=== PATIENT | male | born 1940 | race Caucasian/White ===

== ENCOUNTER 2017-08-14 23:40 | Emergency (ER) | payer MEDICARE, BC ==
[2017-08-14] MEDS ORDERED: IPRATROPIUM/ALBUTEROL (0.5MG/3MG) NEB INH ONE (23:58)
--- NOTE | 2017-08-15 00:04 | Emergency Department Record ---
History of Present Illness - General Chief Complaint: Shortness of breath Stated Complaint: CONGESTION,ALONSO,FEVER Source: Patient Mode of Arrival: Ambulatory Limitations: No limitations - History of Present Illness Initial Comments: 76 yo male presents to ED for evaluation of difficulty in breathing, feeling flushed, and congested for the past several hours. Patient denies fevers, chills, or recent illness. Patient does report that he uses CPAP at night, but does not wear oxygen at home. Patient denies a history of COPD/Asthma previously, and denies chest pain. MD Complaint: Shortness of breath Onset/Timin -: Days(s) Severity: Moderate Consistency: Constant Improves With: Nothing Worsens With: Nothing Associated Symptoms: Denies other symptoms - Related Data Home Oxygen Therapy: No Home Medications Medication Instructions Recorded Confirmed Last Taken Amiodarone HCl [Pacerone] 200 mg PO DAILY 08/14/17 08/15/17 Unknown Aspirin 81 mg PO DAILY 08/14/17 08/15/17 Unknown Clonidine HCl [Clonidine HCl] 0.2 mg PO BID 08/14/17 08/14/17 Unknown Furosemide [Furosemide] 40 mg PO DAILY 08/14/17 08/15/17 Unknown Glyburide [Glyburide] 1.25 mg PO DAILY 08/14/17 08/15/17 Unknown Metformin HCl [Metformin HCl] 1,000 mg PO BID 08/14/17 08/14/17 Unknown Metoprolol Succinate [Toprol Xl] 50 mg PO QPM 08/14/17 08/15/17 Unknown Metoprolol Succinate [Toprol Xl] 100 mg PO QAM 08/14/17 08/15/17 Unknown Potassium Chloride 10 meq PO DAILY 08/14/17 08/15/17 Unknown Rivaroxaban [Xarelto] 20 mg PO DAILY 08/14/17 08/15/17 Unknown Sacubitril/Valsartan [Entresto 97 1 tab PO BID 08/14/17 08/15/17 Unknown mg-103 mg Tablet] Sulindac [Sulindac] 200 mg PO BID 08/14/17 08/15/17 Unknown Previous Rx's Medication Instructions Recorded Prednisone [Prednisone 20Mg] 20 mg PO TID #12 tab 08/15/17 Allergies Allergy/AdvReac Type Severity Reaction Status Date / Time No Known Drug Allergies Allergy Verified 08/14/17 23:57 Review of Systems Constitutional: Denies: Chills, Fever, Malaise, Night sweats Eyes: Denies: Eye discharge, Eye pain ENT: Reports: Congestion. Denies: Ear pain Respiratory: Reports: Dyspnea. Denies: Cough Cardiovascular: Denies: Chest pain, Dyspnea on exertion Endocrine: Denies: Fatigue, Heat or cold intolerance Gastrointestinal: Denies: Abdominal pain, Nausea, Vomiting Genitourinary: Denies: Incontinence, Retention Musculoskeletal: Denies: Arthralgia, Back pain, Gout, Joint swelling Skin: Denies: Bruising, Change in color Neurological: Denies: Abnormal gait, Confusion, Headache, Seizure Psychiatric: Denies: Anxiety Hematological/Lymphatic: Denies: Anemia, Blood Clots Physical Exam - General General Appearance: Alert, Oriented x3, Cooperative, Moderate distress Limitations: No limitations - Head Head exam: Atraumatic, Normocephalic, Normal inspection Head exam detail: negative: Abrasion, Contusion, Stauffer's sign, General tenderness, Hematoma, Laceration - Eye Eye exam: Normal appearance. negative: Conjunctival injection, Periorbital swelling, Periorbital tenderness, Scleral icterus - ENT Ear exam: negative: Auricular hematoma, Auricular trauma Nasal Exam: negative: Active bleeding, Discharge, Dried blood, Foreign body Mouth exam: negative: Drooling, Laceration, Muffled voice, Tongue elevation - Neck Neck exam: Normal inspection. negative: Meningismus, Tenderness - Respiratory Respiratory exam: Decreased breath sounds. negative: Rales, Respiratory distress, Rhonchi, Stridor - Cardiovascular Cardiovascular Exam: Regular rate, Normal rhythm, Normal heart sounds - GI/Abdominal GI/Abdominal exam: Soft. negative: Rebound, Rigid, Tenderness - Rectal Rectal exam: Deferred - exam: Deferred - Extremities Extremities exam: Normal inspection. negative: Pedal edema (1+edema bilaterally ), Tenderness - Back Back exam: Denies: CVA tenderness (R), CVA tenderness (L) - Neurological Neurological exam: Alert, Normal gait, Oriented X3 - Psychiatric Psychiatric exam: Normal affect, Normal mood - Skin Skin exam: Normal color. negative: Abrasion Type of lesion: negative: abrasion Course Vital Signs 08/14/17 23:56 Temperature 98.9 F Pulse Rate [ 86 Pulse Ox Probe] Respiratory 22 Rate Blood Pressure 137/86 [Left Arm] Pulse Ox 91 L - Reevaluation(s) Reevaluation #1: 08/15/17 00:17 EKG: paced rhythm 85 LBBB, no further interpretation due to paved rhythm. Reevaluation #2: 08/15/17 00:59 CXR: Chronic changes, cardiomegaly, post-operative changes. Labs reviewed, Hgb 13.8, BNP 4262. Labs are otherwise grossly unremarkable for an acute process. Patient reports significant improvement following duoneb. Reevaluation #3: 08/15/17 01:21 Ambulation trial performed with RA biox between 90-94%, patient reports that he was not SOB upon completion, and reports that he would like to go home a this time. Will discharge home on Albuterol and Prednisone as directed. Medical Decision Making - Lab Data Result diagrams: 08/14/17 00:25 02 00:25 Disposition Disposition: Discharge Clinical Impression: Bronchospasm Disposition: Home, Self-Care Condition: (2) Stable Instructions: Bronchospasm (ED) Additional Instructions: Return to ED if your symptoms worsen or if you have any concerns. Albuterol and prednisone as directed. Follow-up with your family doctor in 3-5 days as directed. Prescriptions: Prednisone [Prednisone 20Mg] 20 mg PO TID #12 tab Forms: Patient Portal Access Time of Disposition: 01:23 Quality - Quality Measures Quality Measures: N/A - Blood Pressure Screening Does Patient Have Any of the Following: No Blood Pressure Classification: Pre-Hypertensive BP Reading Systolic Measurement: 137 Diastolic Measurement: 86 Screening for High Blood Pressure: < Pre-Hypertensive BP, F/U Documented > [ G8950] Pre-Hypertensive Follow-up Interventions: Referral to alternative/primary care provider.
[2017-08-15 00:33] LABS: BASO % 0.3 % (0-6); EOS % 0.7 % (0-6); GRAN % 75.4 % (47-80); HEMATOCRIT 40.5 % (42.0-52.0); HEMOGLOBIN 13.8 gm/dl (14.0-18.0); LYMPH % 9.4 % (16-45); MEAN CORPUSCULAR HEMOGLOBIN 32.7 pg (27-33); MEAN CORPUSCULAR HGB CONC 34.1 g/dl (32-36); MEAN PLATELET VOLUME 9.9 fl (7.4-10.4); MONO % 14.2 % (0-9); PLATELET COUNT 201 K/uL (130-400); RED BLOOD COUNT 4.22 M/uL (4.40-5.70); RED CELL DISTRIBUTION WIDTH 14.8 % (11.5-14.5)
[2017-08-15 00:46] LABS: BLOOD UREA NITROGEN 26 mg/dL (8-23); CREATININE 1.1 mg/dL (0.7-1.2); EST GLOMERULAR FILTRATION RATE > 60 mL/min
[2017-08-15 00:47] LABS: TOTAL PROTEIN 7.2 g/dL (6.6-8.7)
[2017-08-15 00:49] LABS: GLUCOSE,RANDOM 149 mg/dL (74-109)
[2017-08-15 00:52] LABS: ALB/GLOB RATIO 1.3 (1.1-1.8); ALKALINE PHOSPHATASE 84 U/L (40-129); ALT/SGPT 13 U/L (<41); AST/SGOT 14 U/L (10.0-50.0)
[2017-08-15] MEDS ORDERED: ALBUTEROL HFA 8 GM INHALER INH ONE (01:20)
[2017-08-15] MEDS ORDERED: PREDNISONE 20 MG TAB PO ONE (01:20)
--- NOTE | 2017-08-15 10:34 | RADIOLOGY REPORT ---
EXAM: CHEST, TWO VIEWS HISTORY: DIFFICULTY IN BREATHING, SHORTNESS OF BREATH FOR THE PAST FEW DAYS. TECHNIQUE: PA and lateral views of the chest were obtained. Comparison: Two view chest 09/27/15. FINDINGS: Cardiomegaly is again seen. The lungs appear hyperinflated suggesting underlying COPD. Somewhat greater prominence of the interstitium compared to the prior study probably with some Ady B lines and clinical correlation as to mild CHF superimposed on COPD. There is blunting of the costophrenic angles by fluid or thickened pleura as well. No pneumothorax evident. Prominent spurring in the spine. ICD remains in place. Postop sternotomy as before. IMPRESSION: 1. POSTOP STERNOTOMY AND ICD BEFORE. 2. HYPERINFLATION CONSISTENT WITH UNDERLYING COPD. 3. ADDITIONAL FINDINGS SUGGESTING MILD CHF SUPERIMPOSED ON COPD. FOLLOW-UP FILMS MAY BE USEFUL. JOB NUMBER: [id number] [facility]
== END 2017-08-15 01:40 | disposition home or self-care (01) ==
LOC: ER 23:40
DX: J98.01 Acute bronchospasm (principal); R06.02 Shortness of breath; I10 Essential (primary) hypertension; R50.9 Fever, unspecified; I25.2 Old myocardial infarction; E11.9 Type 2 diabetes mellitus without complications; Z79.84 Long term (current) use of oral hypoglycemic drugs
CPT/HCPCS: 71046; 80053; 83880; 85025; 93005; 93010; 94640; 94664; 99284; J7512

== ENCOUNTER 2017-08-20 23:26 | Inpatient (IN) | payer BC, MEDICARE ==
[2017-08-20] MEDS ORDERED: IPRATROPIUM/ALBUTEROL (0.5MG/3MG) NEB INH ONE (23:38)
[2017-08-20] MEDS ORDERED: ALBUTEROL SULFATE (0.083%) 2.5 MG/3 ML NEB INH ONE (23:53)
--- NOTE | 2017-08-21 00:02 | Emergency Department Record ---
History of Present Illness - General Chief Complaint: Shortness of breath Stated Complaint: TROUBLE BREATHING Time Seen by Provider: 08/20/17 23:44 Source: Patient Mode of Arrival: Ambulatory Limitations: No limitations - History of Present Illness Initial Comments: pt has been increasingly sob for a week. he was here a week ago for the same but has grown progressively worse. his a week ago. he has a prod brown cough. no fevers MD Complaint: Cough, Shortness of breath Onset/Timin -: Week(s) Consistency: Getting worse Worsens With: Exertion, Movement Associated Symptoms: Cough, Sputum production Treatments Prior to Arrival: None - Related Data Home Oxygen Therapy: No Previous Rx's Medication Instructions Recorded Prednisone [Prednisone 20Mg] 20 mg PO TID #12 tab 08/15/17 Allergies Allergy/AdvReac Type Severity Reaction Status Date / Time No Known Drug Allergies Allergy Verified 08/14/17 23:57 Travel Screening - Travel/Exposure Within Last 30 Days Have you traveled within the last 30 days?: No - Travel Symptoms Symptom Screening: None Review of Systems Reviewed: No additional complaints except as noted below Constitutional: Reports: As per HPI. Denies: Chills, Fever, Malaise, Night sweats, Weakness, Weight change Eyes: Reports: As per HPI. Denies: Eye discharge, Eye pain, Photophobia, Vision change ENT: Reports: As per HPI, Congestion. Denies: Dental pain, Ear pain, Epistaxis , Hearing loss, Throat pain Respiratory: Reports: As per HPI, Cough, Wheezes. Denies: Dyspnea, Hemoptysis, Stridor Cardiovascular: Reports: As per HPI. Denies: Arrhythmia, Chest pain, Dyspnea on exertion, Edema, Murmurs, Orthopnea, Palpitations, Paroxysmal nocturnal dyspnea, Rheumatic Fever, Syncope Endocrine: Reports: As per HPI. Denies: Fatigue, Heat or cold intolerance, Polydipsia, Polyuria Gastrointestinal: Reports: As per HPI. Denies: Abdominal pain, Constipation, Diarrhea, Hematemesis, Hematochezia, Melena, Nausea, Vomiting Genitourinary: Reports: As per HPI. Denies: Dysuria, Frequency, Hematuria, Incontinence, Retention, Testicular pain, Testicular mass, Urgency Musculoskeletal: Reports: As per HPI. Denies: Arthralgia, Back pain, Gout, Joint swelling, Myalgia, Neck pain Skin: Reports: As per HPI. Denies: Bruising, Change in color, Change in hair/ nails, Lesions, Pruritus, Rash Neurological: Reports: As per HPI. Denies: Abnormal gait, Confusion, Headache, Numbness, Paresthesias, Seizure, Tingling, Tremors, Vertigo, Weakness Psychiatric: Reports: As per HPI. Denies: Anxiety, Auditory hallucinations, Depression, Homicidal thoughts, Suicidal thoughts, Visual hallucinations Hematological/Lymphatic: Reports: As per HPI. Denies: Anemia, Blood Clots, Easy bleeding, Easy bruising, Swollen glands Past Medical History - SOCIAL HISTORY Smoking Status: Never smoker - RESPIRATORY Hx Respiratory Disorders: Yes Hx Sleep Apnea: Yes Hx of CPAP: Yes - CARDIOVASCULAR Hx Cardio Disorders: Yes Hx CHF: Yes Hx Heart Attack: Yes Hx Hypertension: Yes Hx Irregular Heartbeat: Yes Hx Pacemaker/Defib: Yes - NEURO Hx Neuro Disorders: No - GI Hx GI Disorders: No - Hx Genitourinary Disorders: No - ENDOCRINE Hx Endocrine Disorders: Yes Hx Diabetes: Yes (DM2) - MUSCULOSKELETAL Hx Musculoskeletal Disorders: Yes Hx Arthritis: Yes - PSYCH Hx Psych Problems: No - HEMATOLOGY/ONCOLOGY Hx Hematology/Oncology Disorders: Yes Hx Cancer: Yes (Prostate) Hx Chemotherapy: No Hx Radiation Therapy: No Family Medical History Any Significant Family History?: Yes Family Hx Comment (NOT TO BE USED IN PLACE OF ITEMS BELOW): denies Physical Exam - General General Appearance: Alert, Oriented x3, Cooperative, Mild distress - Head Head exam: Normal inspection - Eye Eye exam: Normal appearance, PERRL, EOMI Pupils: Normal accommodation - ENT ENT exam: Normal exam, Mucous membranes moist, Normal external ear exam, Normal orophraynx Ear exam: Normal external inspection. negative: External canal tenderness Nasal Exam: Normal inspection. negative: Discharge, Sinus tenderness Mouth exam: Normal external inspection, Tongue normal Teeth exam: Normal inspection. negative: Dental caries Throat exam: Normal inspection. negative: Tonsillar erythema, Tonsillar exudate - Neck Neck exam: Normal inspection, Full ROM. negative: Tenderness - Respiratory Respiratory exam: Rales, Respiratory distress, Wheezes - Cardiovascular Cardiovascular Exam: Regular rate, Normal rhythm, Normal heart sounds - GI/Abdominal GI/Abdominal exam: Soft, Normal bowel sounds. negative: Tenderness - Rectal Rectal exam: Deferred - exam: Deferred - Extremities Extremities exam: Normal inspection, Full ROM, Normal capillary refill. negative: Tenderness - Back Back exam: Reports: Normal inspection, Full ROM. Denies: Muscle spasm, Rash noted, Tenderness - Neurological Neurological exam: Alert, CN II-XII intact, Normal gait, Oriented X3 - Psychiatric Psychiatric exam: Normal affect, Normal mood - Skin Skin exam: Dry, Intact, Normal color, Warm Course Vital Signs 08/20/17 08/20/17 23:32 23:35 Pulse Rate 82 80 Respiratory 24 18 Rate Blood Pressure 133/89 Pulse Ox 91 L 99 - Reevaluation(s) Reevaluation #1: 08/21/17 01:45 pt feels better. still requiring o2 to maintain stats Medical Decision Making - Lab Data Result diagrams: 08/21/17 00:03 08/21/17 00:03 Disposition Disposition: Admit Clinical Impression: Lung nodule CHF (congestive heart failure) Qualifiers: Heart failure type: unspecified Heart failure chronicity: acute Qualified Code( s): I50.9 - Heart failure, unspecified COPD (chronic obstructive pulmonary disease) Qualifiers: COPD type: COPD with acute exacerbation Qualified Code(s): J44.1 - Chronic obstructive pulmonary disease with (acute) exacerbation Disposition: Still a Patient at [facility] Decision to Admit: Admit from ER Decision to Admit Date: 08/21/17 Decision to Admit Time: 01:47 Forms: Patient Portal Access Quality - Quality Measures Quality Measures: N/A - Blood Pressure Screening Does Patient Have Any of the Following: No Blood Pressure Classification: Pre-Hypertensive BP Reading Systolic Measurement: 133 Diastolic Measurement: 89 Screening for High Blood Pressure: < Pre-Hypertensive BP, F/U Documented > [ G8950] Pre-Hypertensive Follow-up Interventions: Follow-up with rescreen every year.
[2017-08-21] MEDS ORDERED: METHYLPREDNISOLONE PF 125MG/VIAL IVP ONE (00:04)
[2017-08-21 00:08] LABS: BASO % 0.1 % (0-6); EOS % 1.7 % (0-6); GRAN % 78.6 % (47-80); HEMATOCRIT 41.7 % (42.0-52.0); HEMOGLOBIN 13.7 gm/dl (14.0-18.0); LYMPH % 11.1 % (16-45); MEAN CELL VOLUME 95.4 fl (81-97); MEAN CORPUSCULAR HGB CONC 32.9 g/dl (32-36); MEAN PLATELET VOLUME 9.5 fl (7.4-10.4); MONO % 8.5 % (0-9); PLATELET COUNT 240 K/uL (130-400); RED BLOOD COUNT 4.37 M/uL (4.40-5.70); RED CELL DISTRIBUTION WIDTH 14.8 % (11.5-14.5); WHITE BLOOD COUNT W/O DIFF 9.6 K/uL (4.2-12.2)
[2017-08-21 00:09] LABS: MEAN CORPUSCULAR HEMOGLOBIN 31.3 pg (27-33)
[2017-08-21 00:21] LABS: BLOOD UREA NITROGEN 32 mg/dL (8-23); EST GLOMERULAR FILTRATION RATE > 60 mL/min
[2017-08-21 00:24] LABS: GLUCOSE,RANDOM 129 mg/dL (74-109)
[2017-08-21] MEDS ORDERED: FUROSEMIDE IV 40MG/4ML VIAL IVP ONE (00:45)
[2017-08-21] MEDS ORDERED: METHYLPREDNISOLONE PF 125MG/VIAL IVP SCH ×2 (02:08→08:00)
[2017-08-21] MEDS ORDERED: ACETAMINOPHEN 500 MG TABLET PO PRN (02:08)
[2017-08-21] MEDS ORDERED: IPRATROPIUM/ALBUTEROL (0.5MG/3MG) NEB INH PRN (02:08)
[2017-08-21] MEDS ORDERED: CEFTRIAXONE SODIUM 1 GM in 0.9 % SODIUM CHLORIDE 100ML 100 ML IVPB SCH (02:08)
[2017-08-21] MEDS ORDERED: ALBUTEROL SULFATE (0.083%) 2.5 MG/3 ML NEB INH PRN (02:08)
[2017-08-21] MEDS: 0.9 % SODIUM CHLORIDE 10ML SYR IVP SCH ×2 (08:14→22:43)
--- NOTE | 2017-08-21 08:33 | CT ANGIOGRAM REPORT ---
EXAM: CT ANGIOGRAM OF THE CHEST HISTORY: SHORTNESS OF BREATH FOR ONE WEEK. PROSTATE CARCINOMA. PRIOR CORONARY ARTERY BYPASS GRAFT SURGERY. TECHNIQUE: Routine CTA examination of the chest was performed utilizing a pulmonary embolus protocol with 92 ml of Omnipaque 350 utilized. Coronal and sagittal maximum intensity projection reformatted images are generated and reviewed. Comparison: Two view chest radiographic examination dated 08/15/17. FINDINGS: Opacification of the pulmonary arteries is satisfactory for interpretation though evaluation of the segmental arteries in the lower lungs is mildly limited by respiratory motion. No luminal filling defect is demonstrated in the outflow tract, main arteries, lobar arteries nor proximal segmental arteries, that are unaffected by respiratory motion to suggest acute pulmonary embolic disease. Post median sternotomy changes redemonstrated. A multilead transvenous cardiac stimulator is in place with lead tips in the right atrium and right ventricle respectively. The heart is enlarged. No evidence of right heart strain. There is diffuse atherosclerosis of the [place] coronary arteries. There is diffuse atherosclerosis of the thoracic aorta without focal aneurysmal dilatation. The ascending aorta is borderline ectatic measuring 3.9 cm. Evaluation for thoracic aortic dissection is nondiagnostic due to suboptimal opacification of the aortic lumen. No mediastinal nor hilar mass/lymphadenopathy. Small partially calcified pleural plaques are scattered in each hemithorax. This can be seen with asbestos exposure as well as granulomatous disease. There are small dependent pleural effusions. Evaluation of the lung parenchyma is somewhat limited by respiratory motion. Biapical lung scarring is present. There is a small area of ground glass opacity in the anterolateral right upper lobe measuring 1.5 x 2.5 cm. Patchy opacities are noted within each lung base consistent with atelectasis, infiltrate or edema. Calcified granulomata are also possible within the lung base. There is a hypodense mass arising from the medial upper pole of the left kidney measuring 2.7 x 2.7 cm. This has a density of 5 Hounsfield units and is consistent with a cyst. It is incompletely imaged. There is a nodular density measuring 12 mm near the expected medial upper pole of the right kidney, incompletely imaged. This is nonspecific though may represent a hyperdense cyst. There is mild nodularity of the body of the left adrenal gland measuring 1.2 x 1.6 cm. This is nonspecific, but statistically is likely an adenoma. No lytic or blastic bone lesion. IMPRESSION: 1. NO CT EVIDENCE OF ACUTE PULMONARY EMBOLIC DISEASE THOUGH EVALUATION OF THE SEGMENTAL ARTERIES OF THE LOWER LUNGS IS LIMITED BY MOTION. 2. CARDIOMEGALY WITH BILATERAL PLEURAL EFFUSION SUSPICIOUS FOR FLUID OVERLOAD/ CHF. 3. MIXED OPACITIES IN EACH LUNG BASE CONSISTENT WITH ATELECTASIS, INFILTRATE OR EDEMA. HEALED GRANULOMATOUS DISEASE IN THE LUNG BASES. 4. GROUND GLASS OPACITY IN THE ANTEROLATERAL RIGHT UPPER LOBE IS NONSPECIFIC, BUT LIKELY AN AREA OF ATELECTASIS OR INFILTRATE. FOLLOW-UP CT CHEST EXAMINATION IN SIX MONTHS IS RECOMMENDED. 5. CALCIFIED PLEURAL PLAQUES. 6. MILD NODULARITY OF THE LEFT ADRENAL GLAND, DISCUSSED ABOVE. 7. LEFT RENAL CYST. INCOMPLETELY NODULAR AREA NEAR THE EXPECTED LOCATION OF THE MEDIAL MARGIN OF THE UPPER POLE OF THE RIGHT KIDNEY. THIS IS NONSPECIFIC, BUT LIKELY A HYPERDENSE CYST. JOB NUMBER: [id number] [facility]
[2017-08-21] MEDS: AMIODARONE HCL 200 MG TABLET PO SCH (09:58)
[2017-08-21] MEDS: POTASSIUM CHLORIDE 10 MEQ TAB PO SCH (09:58)
[2017-08-21] MEDS ORDERED: RIVAROXABAN 20 MG TABLET PO SCH (10:00)
[2017-08-21] MEDS ORDERED: PNEUM 13-VAL/PF 0.5 ML IM ONE (10:00)
[2017-08-21] MEDS: METOPROLOL SUCC 50 MG TABLET PO SCH ×2 (10:00→22:43)
[2017-08-21] MEDS ORDERED: Non-Formulary MISC (Clonidine Hcl [Clonidine Hcl] 0.2 MG) PO SCH (10:00)
[2017-08-21] MEDS: CLONIDINE HCL 0.1 MG TABLET PO SCH ×2 (10:01→22:44)
[2017-08-21] MEDS: ASPIRIN 81 MG CHEWABLE TABLET PO SCH (10:02)
[2017-08-21] MEDS: GLIPIZIDE 5 MG TABLET PO SCH (10:03)
[2017-08-21] MEDS: FUROSEMIDE IV 40MG/4ML VIAL IVP SCH (10:04)
--- NOTE | 2017-08-21 11:36 | History & Physical ---
History of Present Illness - Date of Service Date of Service for History & Physical: 08/21/17 - History of Present Illness Admitting Diagnosis: chf, copd, pleural effusions, hypoxia History of Present Illness: 76 yo male admitted for COPD/CHF exacerbation. Patient initially presented to our ED on 08/14, he was given breathing treatment and sent home. Patient felt he should have stayed at the hospital at that time, however his recently passed and her was 08/18. Patient returned to our ED yesterday evening c /o one week of increased work of breathing and LE swelling. Upon presentation, O2 91% on RA, otherwise relatively unremarkable. hgb 13.7, hct 41, normal wbc, BUN 32 otherwise unremarkable CMP. troponin negative x 1. BNP 5185, d dimer 0.75. CTA:negative for PE or aneurysm. CMG w/ bilateral pleural eff suspicious for fluid overload/CHF, mixed opacities in each lung base consistent with atelectasis, infiltrate or edema. healed graulomatous ds in the lungs. ground glass opacity in the anterolateral right upper lobe is non specific but likely an area of atelectasis or infiltrate. follow up CT chest exam in 6 mo's recommended. calcified pleural plaques, mild nodulatiry of the left adrenal gland, left renal cyst. Patient felt his pulmonary status improved following IV steroid, breathing treatment, supplemental O2 and IV lasix. However, patient required continued supp O2. patient placed on manager cardiac & admitted for further medical management. 08/21- patient sitting up in bed this morning. states he's feeling much better. He feels like he's not breathing as quickly and his legs are less swollen. Denies cp, fever, chills, sputum production, dysuria, n/v, change in bowel habits, weakness, lightheadedness, dizziness, skin changes, or headache. Tolerating meals. Ambulating the room. States he's never been told he had COPD. PFT 03/2016- restrictive vent defect. diffuse capacity of 79%. H/o smoking- 1ppd x 30 years. quit 13 years ago. Significant cardiac history include quad bypass in 2000, ICD for heart arrhythmia, follows with Dr. Salgado ( Lead Investigator) every 2-3 months. Additional PMHx: NIDDM, SARAH (uses CPAP), obesity, HTN, h/o prostate CA s/p prostatectomy. PCP: Dr. San Travel Screening - Travel/Exposure Within Last 30 Days Have you traveled within the last 30 days?: No - Travel/Exposure Within Last Year Have you traveled outside the [place] in the last year?: No - Additonal Travel Details Have you been exposed to anyone with a communicable illness?: No - Travel Symptoms Symptom Screening: None Review of Systems Constitutional: Reports: Malaise. Denies: Chills, Fever, Night sweats, Weakness , Weight change Eyes: Denies: Vision change ENT: Reports: Congestion. Denies: Dental pain, Ear pain, Epistaxis, Hearing loss, Throat pain Respiratory: Reports: Cough (dry), Dyspnea, Wheezes. Denies: Hemoptysis, Stridor Cardiovascular: Reports: Arrhythmia (hx of, s/p pacemaker), Edema (b/l LE's), Orthopnea. Denies: Chest pain, Dyspnea on exertion, Murmurs, Palpitations, Paroxysmal nocturnal dyspnea, Syncope Endocrine: Reports: Fatigue Gastrointestinal: Denies: Abdominal pain, Constipation, Diarrhea, Hematemesis, Hematochezia, Melena, Nausea, Vomiting Genitourinary: Denies: Dysuria Musculoskeletal: Reports: Back pain (chronic LBP, unchanged, prior surgery, scar on exam). Denies: Arthralgia Skin: Denies: Lesions, Rash Neurological: Denies: Abnormal gait, Headache, Weakness Psychiatric: Denies: Suicidal thoughts Past Medical History - SOCIAL HISTORY Smoking Status: Former smoker Alcohol Use: None Drug Use: None - RESPIRATORY Hx Respiratory Disorders: Yes Hx Asthma: No Hx Bronchitis: No Hx COPD: No Hx Dyspnea: Yes Hx Pneumonia: No Hx Pulmonary Embolism: No Hx Sleep Apnea: Yes Hx Tuberculosis: No Hx of CPAP: Yes - CARDIOVASCULAR Hx Cardio Disorders: Yes Hx Abnormal EKG: Yes Hx Cardiac Cath: No Hx Chest Pain: No Hx CHF: Yes Hx Deep Vein Thrombosis: No Hx Edema: Yes Hx Heart Attack: Yes Hx Hypertension: Yes Hx Hypotension: No Hx Irregular Heartbeat: Yes Hx Palpitations: No Hx Pacemaker/Defib: Yes Hx Vascular Disease: No - NEURO Hx Neuro Disorders: No Hx Brain Tumor: No Hx CVA: No Hx Dementia: No Hx Dizziness: No Hx Headaches: No Hx Neuropathy: No Hx Parkinson's Disease: No Hx Seizures: No Hx Speech Problem: No Hx TIA: No - GI Hx GI Disorders: No Hx Abdominal Pain: No Hx Celiac Disease: No Hx Crohn's Disease: No Hx Diverticulitis: No Hx GI Bleed: No Hx Reflux: No Hx Hepatitis/Jaundice: No Hx Hiatal Hernia: No Hx Irritable Bowel: No Hx Liver Disease: No Hx Nausea/Vomiting: No Hx Obstructive Bowel: No Hx Pancreatitis: No Hx Rectal Bleeding: No Hx Ulcer: No Hx Wt Loss/Wt Gain: No Hx of Polyps: No - Hx Genitourinary Disorders: Yes Hx Bladder Problem: No Hx Dialysis: No Hx Kidney Stones: Yes Hx Prostate Problems: Yes Hx Renal Disease: No Hx UTI: No - ENDOCRINE Hx Endocrine Disorders: Yes Hx Diabetes: Yes (DM2) Hx Thyroid Disease: No - MUSCULOSKELETAL Hx Musculoskeletal Disorders: Yes Hx Arthritis: Yes Hx Back Injury: No Hx Fibromyalgia: No Hx Gout: No Hx Musculoskeletal Disease: No Hx Osteoporosis: No - PSYCH Hx Psych Problems: No Hx Anxiety: No Hx Behavior Problems: No Hx Depression: No Hx Emotional Abuse: No Hx Sexual Abuse: No Hx Suicide Attempt: No Major Depressive Episode: No Feelings of Hopelessness: No Comment:: recent - HEMATOLOGY/ONCOLOGY Hx Hematology/Oncology Disorders: Yes Hx Anemia: No Hx Blood Disorders: No Hx Bruising: No Hx Cancer: Yes (Prostate) Hx Chemotherapy: No Hx Radiation Therapy: No Hx Clotting Problems: No Hx Sickle Cell Disease: No Hx Unexplained Bleeding: No Hx Blood Transfusions: No Hx Blood Transfusion Reaction: No Family Medical History Any Significant Family History?: Yes Family Hx Comment (NOT TO BE USED IN PLACE OF ITEMS BELOW): denies Hx Alcohol Use: Father Hx Diabetes: Brother/Sister Hx HTN: Father, Mother, Brother/Sister H&P Meds/Allergies - Allergies Allergies: Allergies Allergy/AdvReac Type Severity Reaction Status Date / Time No Known Drug Allergies Allergy Verified 08/14/17 23:57 - Home Medications Previous Rx's Medication Instructions Recorded Prednisone [Prednisone 20Mg] 20 mg PO TID #12 tab 08/15/17 - Active Medications Active Medications: Current Medications Acetaminophen (Tylenol 500mg Tab) 1,000 mg PO Q6H PRN PRN Reason: PAIN/TEMP Albuterol Sulfate () 2.5 mg INH RESP.Q4H PRN PRN Reason: DIFFICULTY IN BREATHING Albuterol/Ipratropium (Duoneb) 3 ml INH RESP.Q6H PRN PRN Reason: Wheezing Last Admin: 08/21/17 09:19 Dose: 3 ml Amiodarone HCl (Pacerone) 200 mg PO DAILY [facility] Last Admin: 08/21/17 09:58 Dose: 200 mg Amlodipine Besylate (Norvasc) 10 mg PO QHS [facility] Aspirin (Aspirin Chewable) 81 mg PO DAILY [facility] Last Admin: 08/21/17 10:02 Dose: 81 mg Atorvastatin Calcium (Lipitor) 20 mg PO QHS [facility] Clonidine HCl (Catapres) 0.2 mg PO BID [facility] Last Admin: 08/21/17 10:01 Dose: 0.2 mg Furosemide (Lasix Iv) 40 mg IVP DAILY [facility] Last Admin: 08/21/17 10:04 Dose: 40 mg Glipizide (Glucotrol) 2.5 mg PO DAILYWM [facility] Last Admin: 08/21/17 10:03 Dose: 2.5 mg Ceftriaxone Sodium 1 gm/ (Sodium Chloride) 100 mls @ 100 mls/hr IVPB Q24H [facility] Stop: 08/26/17 02:09 Last Infusion: 08/21/17 03:46 Dose: Infused Metformin HCl (Glucophage Ir) 1,000 mg PO BID [facility] Methylprednisolone Sodium Succinate (Solu-Medrol) 60 mg IVP Q8H [facility] Last Admin: 08/21/17 08:13 Dose: 60 mg Metoprolol Succinate (Toprol Xl) 50 mg PO QHS [facility] Metoprolol Succinate (Toprol Xl) 100 mg PO QAM [facility] Last Admin: 08/21/17 10:00 Dose: 100 mg Non-Formulary Medication (Sacubitril/Valsartan [Entresto 97 Mg-103 Mg Tablet]) 1 tab PO BID [facility] Non-Formulary Medication (Sulindac [Sulindac]) 200 mg PO BID [facility] Potassium Chloride (Klor-Con) 10 meq PO DAILY [facility] Last Admin: 08/21/17 09:58 Dose: 10 meq Rivaroxaban (Xarelto) 20 mg PO QHS [facility] Sodium Chloride () 10 ml IVP Q12H [facility] Last Admin: 08/21/17 08:14 Dose: 10 ml Physical Exam - Vital Signs Vital Signs: Vital Signs - Last 24 Hrs Temp Pulse Pulse Resp BP BP Pulse Ox 08/21/17 10:08 97.4 F L 18 131/69 95 02/27/18 09:53 97.4 F L 84 20 125/68 94 L 08/21/17 09:26 80 18 93 L 08/21/17 06:00 98.0 F 88 24 130/66 95 08/21/17 02:24 80 24 93 L 08/21/17 02:10 97.6 F 80 24 126/73 91 L 08/21/17 02:08 80 20 137/80 92 L - General General Appearance: Alert, Oriented x3, Cooperative, No acute distress Limitations: No limitations - Head Head exam: Normal inspection, Other (corrective lenses) - Eye Eye exam: Normal appearance, PERRL, EOMI Pupils: Normal accommodation - ENT ENT exam: Normal exam, Mucous membranes moist, Normal external ear exam, Normal orophraynx Ear exam: Normal external inspection. negative: External canal tenderness Nasal Exam: Normal inspection. negative: Discharge, Sinus tenderness Mouth exam: Normal external inspection, Tongue normal Teeth exam: Normal inspection. negative: Dental caries Throat exam: Normal inspection. negative: Tonsillar erythema, Tonsillar exudate - Neck Neck exam: Normal inspection, Full ROM. negative: Lymphadenopathy, Tenderness - Respiratory Respiratory exam: Decreased breath sounds, Rales, Wheezes (faint, b/l bases). negative: Accessory muscle use, Chest wall tenderness, Respiratory distress - Cardiovascular Cardiovascular Exam: Regular rate - GI/Abdominal GI/Abdominal exam: Soft, Normal bowel sounds. negative: Tenderness - Rectal Rectal exam: Deferred - exam: Deferred - Extremities Extremities exam: Normal inspection, Full ROM, Normal capillary refill. negative: Tenderness - Back Back exam: Reports: Normal inspection, Full ROM. Denies: Muscle spasm, Rash noted, Tenderness - Neurological Neurological exam: Alert, CN II-XII intact, Normal gait, Oriented X3 - Psychiatric Psychiatric exam: Normal affect, Normal mood - Skin Skin exam: Dry, Intact, Normal color, Warm, Other (vertical scar low back and sternum from prior surgeries) Results - Labs Result Diagrams: 08/21/17 00:03 08/21/17 00:03 VTE H&P Assessment - Risk for VTE Risk for VTE: Yes Risk Level: High Risk Assessment Date: 08/21/17 Risk Assessment Time: 10:00 VTE Orders Placed or Will Be Placed: Yes Plan - Inpatient Certification Inpatient Certification: Admit to inpatient care: Based on my medical assessment, after consideration of patient's risk factors (age, co-morbidities and patient presenting symptoms and acuity), I expect that this patient will remain in the hospital greater than or equal to two midnights and that the services needed warrant inpatient care because: Patient Risk Factors: [copd, chf exacerbation, fatigue, icnreased work of breathing, requiring supp O2] Estimated length of stay: [2-3 nights] The patient may reasonably be expected to be discharged or transferred to a hospital within 96 hours after admission to [facility]. Services needed: [supp O2, IV steroid, antiboitic, diuresis, manager cardiac, resp therapy] Post hospital care (if known): [home self care] I certify that my determination is in accordance with my understanding of Medicare requirements for reasonable and necessary inpatient services. 08/21/17 11:57 - Detailed Diagnosis and Plan (1) CHF (congestive heart failure) Current Visit: Yes Status: Acute Qualifiers: Heart failure type: unspecified Heart failure chronicity: acute Qualified Code(s): I50.9 - Heart failure, unspecified Base Code: I50.9 - HEART FAILURE, UNSPECIFIED Comment: 08/21 - BNP 5185 w/ B/L +2 LE pitting Edema - home HTN/CHF/arrhythmia meds (Entresto 97-103 mg QD, Toprolol XR 100 mg qd, 50 mg qhs, Lasix 40 mg IV QD, catapress 0.2 mg daily, norvasc 10 mg qhs, amiodarone) - caridac monitor, cardiac diet, daily weights, Is & Os. - follows with Dr. Salgado (Cardiology). Reports ECHO within the past year. Will likely require O/P follow up. (2) Diabetes Current Visit: Yes Status: Acute Base Code: E11.9 - TYPE 2 DIABETES MELLITUS WITHOUT COMPLICATIONS Comment: 08/21 - continue home medications (Metformin 1000 mg daily- will hold for the next 24 Hs, glipize 2.5 mg daily (3) HTN (hypertension) Current Visit: Yes Status: Acute Base Code: I10 - ESSENTIAL (PRIMARY) HYPERTENSION Comment: 08/21 - home HTN/CHF/arrhythmia meds (Entresto 97-103 mg QD, Toprolol XR 100 mg qd, 50 mg qhs, Lasix, catapress 0.2 mg daily, norvasc 10 mg qhs, amiodarone). - cardiac/diabetic diet, manager cardiac, VSQ4H (4) COPD (chronic obstructive pulmonary disease) Current Visit: Yes Status: Acute Qualifiers: COPD type: COPD with acute exacerbation Qualified Code(s): J44.1 - Chronic obstructive pulmonary disease with (acute) exacerbation Base Code: J44.9 - CHRONIC OBSTRUCTIVE PULMONARY DISEASE, UNSPECIFIED Comment : 08/21 - PFT from 03/2016- restrive picture. - exacerbation treatment: Duo neb Q4H, Solu medrol changed from 60 mg TID to 60 mg daily, 1 gm of IV Roecphin Q12H, supplemental O2 (2L NC), will add LABA to regimen - IV diuresis. Daily I&O, weights - home O2 qualification prior to D/C - VS Q4H - repeat CXR as outpatient - CT follow up for lung nodule (5) Lung nodule Current Visit: Yes Status: Acute Base Code: R91.1 - SOLITARY PULMONARY NODULE Comment: 08/21 - found on CTA in the ED. Will need outpatient monitoring. CT every 6 mo's recommended for follow up. Noting smoking history, this was discussed with patient and he will review further with his PCP. (6) Full code status Current Visit: Yes Status: Acute Base Code: Z78.9 - OTHER SPECIFIED HEALTH STATUS Comment: 08/21 - FULL CODE (7) DVT prophylaxis Current Visit: Yes Status: Acute Base Code: [id number] - Comment: 08/21 - patient on xarelto
[2017-08-21] MEDS: METFORMIN 500 MG TABLET PO SCH ×2 (11:55→22:44)
[2017-08-21] MEDS: SACUBITRIL PO SCH ×2 (11:56→22:48)
[2017-08-21] MEDS: VALSARTAN PO SCH ×2 (11:56→22:48)
[2017-08-21] MEDS: SULINDAC 200 MG PO SCH ×2 (11:56→22:48)
[2017-08-21] MEDS: CEFTRIAXONE SODIUM 1 GM in 0.9 % SODIUM CHLORIDE 100ML 100 ML IVPB SCH ×2 (13:16→22:43)
[2017-08-21] MEDS ORDERED: ANORO (UMECLIDINIUM & VILANTEROL) 62.5MCG/25MCG INH IH SCH (13:30)
[2017-08-21] MEDS: ATORVASTATIN 20 MG TABLET PO SCH (22:44)
[2017-08-21] MEDS: RIVAROXABAN 20 MG TABLET PO SCH (22:45)
[2017-08-21] MEDS: AMLODIPINE BESYLATE 5MG TAB PO SCH (22:45)
[2017-08-22 09:24] LABS: BLOOD UREA NITROGEN 35 mg/dL (8-23); EST GLOMERULAR FILTRATION RATE > 60 mL/min
[2017-08-22 09:27] LABS: GLUCOSE,RANDOM 247 mg/dL (74-109)
[2017-08-22] MEDS: AMIODARONE HCL 200 MG TABLET PO SCH (09:36)
[2017-08-22] MEDS: FUROSEMIDE IV 40MG/4ML VIAL IVP SCH (09:36)
[2017-08-22] MEDS: METHYLPREDNISOLONE PF 125MG/VIAL IVP SCH (09:36)
[2017-08-22] MEDS: GLIPIZIDE 5 MG TABLET PO SCH (09:36)
[2017-08-22] MEDS: METFORMIN 500 MG TABLET PO SCH ×2 (09:36→21:22)
[2017-08-22] MEDS: CLONIDINE HCL 0.1 MG TABLET PO SCH ×2 (09:36→21:22)
[2017-08-22] MEDS: POTASSIUM CHLORIDE 10 MEQ TAB PO SCH (09:36)
[2017-08-22] MEDS: ASPIRIN 81 MG CHEWABLE TABLET PO SCH (09:37)
[2017-08-22] MEDS: METOPROLOL SUCC 50 MG TABLET PO SCH ×2 (09:37→21:23)
[2017-08-22] MEDS: 0.9 % SODIUM CHLORIDE 10ML SYR IVP SCH ×2 (09:37→21:22)
[2017-08-22] MEDS: SULINDAC 200 MG PO SCH ×2 (09:43→21:24)
[2017-08-22] MEDS: VALSARTAN PO SCH ×2 (09:43→21:24)
[2017-08-22] MEDS: SACUBITRIL PO SCH ×2 (09:43→21:24)
[2017-08-22] MEDS: CEFTRIAXONE SODIUM 1 GM in 0.9 % SODIUM CHLORIDE 100ML 100 ML IVPB SCH ×2 (09:45→21:22)
[2017-08-22] MEDS ORDERED: MAGNESIUM HYDROXIDE 30 ML UDC PO PRN (09:51)
[2017-08-22] MEDS: ANORO (UMECLIDINIUM & VILANTEROL) 62.5MCG/25MCG INH IH SCH (10:04)
--- NOTE | 2017-08-22 10:38 | Physician Progress Note ---
Subjective - Date Date of Physician Progress Note: 08/22/17 - Subjective Subjective Comment: sitting up in bed comfortably. states he's feeling better. sob continues with exertion. afebrile. no cp. tolerating meals. Objective - Vital Signs Vital Signs: Vital Signs - Last 24 Hrs Temp Pulse Pulse Pulse Resp BP BP 08/22/17 10:09 85 15 08/22/17 09:00 90 18 08/22/17 08:17 98.2 F 78 18 134/90 08/22/17 06:00 97.9 F 90 20 131/74 08/22/17 00:49 97.8 F 83 20 119/69 08/21/17 20:39 97.5 F L 81 22 122/75 08/21/17 18:00 97.3 F L 20 110/72 08/21/17 13:27 98.6 F 82 116/66 Pulse Ox 08/22/17 10:09 96 08/22/17 09:00 08/22/17 08:17 96 08/22/17 06:00 93 L 08/22/17 00:49 95 08/21/17 20:39 96 08/21/17 18:00 82 L 08/21/17 13:27 95 - General General Appearance: Alert, Oriented x3, Cooperative, No acute distress Limitations: No limitations - Head Head exam: Normal inspection, Other (corrective lenses) - Eye Eye exam: Normal appearance, PERRL, EOMI Pupils: Normal accommodation - ENT ENT exam: Normal exam, Mucous membranes moist, Normal external ear exam, Normal orophraynx Ear exam: Normal external inspection. negative: External canal tenderness Nasal Exam: Normal inspection. negative: Discharge, Sinus tenderness Mouth exam: Normal external inspection, Tongue normal Teeth exam: Normal inspection. negative: Dental caries Throat exam: Normal inspection. negative: Tonsillar erythema, Tonsillar exudate - Neck Neck exam: Normal inspection, Full ROM. negative: Lymphadenopathy, Tenderness - Respiratory Respiratory exam: Normal lung sounds bilaterally, Wheezes (faint, b/l bases). negative: Accessory muscle use, Chest wall tenderness, Rales, Respiratory distress, Rhonchi, Stridor - Cardiovascular Cardiovascular Exam: Regular rate - GI/Abdominal GI/Abdominal exam: Soft, Normal bowel sounds. negative: Tenderness - Rectal Rectal exam: Deferred - exam: Deferred - Extremities Extremities exam: Normal inspection, Full ROM, Normal capillary refill. negative: Tenderness - Back Back exam: Reports: Normal inspection, Full ROM. Denies: Muscle spasm, Rash noted, Tenderness - Neurological Neurological exam: Alert, CN II-XII intact, Normal gait, Oriented X3 - Psychiatric Psychiatric exam: Normal affect, Normal mood - Skin Skin exam: Dry, Intact, Normal color, Warm, Other (vertical scar low back and sternum from prior surgeries) Assessment and Plan - Assessment and Plan (1) CHF (congestive heart failure) Current Visit: Yes Status: Acute Qualifiers: Heart failure type: unspecified Heart failure chronicity: acute Qualified Code(s): I50.9 - Heart failure, unspecified Base Code: I50.9 - HEART FAILURE, UNSPECIFIED Comment: 08/22 - BNP & B/L LE edema improving - home HTN/CHF/arrhythmia meds (Entresto 97-103 mg QD, Toprolol XR 100 mg qd, 50 mg qhs, catapress 0.2 mg daily, norvasc 10 mg qhs, amiodarone). Will change Lasix from 40 mg IV QD to PO 40 mg. - caridac monitor, cardiac diet, daily weights, Is & Os. - follows with Dr. Jacobs (Cardiology). Reports ECHO within the past year. Will likely require O/P follow up. (2) Diabetes Current Visit: Yes Status: Acute Base Code: E11.9 - TYPE 2 DIABETES MELLITUS WITHOUT COMPLICATIONS Comment: 08/22 - continue home medications (Metformin 1000 mg daily, glipize 2.5 mg daily). (3) HTN (hypertension) Current Visit: Yes Status: Acute Base Code: I10 - ESSENTIAL (PRIMARY) HYPERTENSION Comment: 08/22 - home HTN/CHF/arrhythmia meds (Entresto 97-103 mg QD, Toprolol XR 100 mg qd, 50 mg qhs, Lasix, catapress 0.2 mg daily, norvasc 10 mg qhs, amiodarone). - cardiac/diabetic diet, monitoring engineer, VSQ4H (4) COPD (chronic obstructive pulmonary disease) Current Visit: Yes Status: Acute Qualifiers: COPD type: COPD with acute exacerbation Qualified Code(s): J44.1 - Chronic obstructive pulmonary disease with (acute) exacerbation Base Code: J44.9 - CHRONIC OBSTRUCTIVE PULMONARY DISEASE, UNSPECIFIED Comment : 08/22 - PFT from 03/2016- restrive picture. - exacerbation treatment: Duo neb Q4H PRN, Solu medrol 60 mg daily, 1 gm of IV Roecphin Q12H (transition to PO abx prior to D/C), supplemental O2 (2L NC), will add LABA to regimen - IV diuresis. Daily I&O, weights - home O2 qualification ordered- 24 hour prior to d/c. - VS Q4H - repeat CXR as outpatient - CT follow up for lung nodule - script for nebulizer machine completed (5) Lung nodule Current Visit: Yes Status: Acute Base Code: R91.1 - SOLITARY PULMONARY NODULE Comment: 08/22 - found on CTA in the ED. Will need outpatient monitoring. CT every 6 mo's recommended for follow up. Noting smoking history, this was discussed with patient and he will review further with his PCP. (6) Full code status Current Visit: Yes Status: Acute Base Code: Z78.9 - OTHER SPECIFIED HEALTH STATUS Comment: 08/22 - FULL CODE (7) DVT prophylaxis Current Visit: Yes Status: Acute Base Code: [id number] - Comment: 08/22 - patient on xarelto Results - Labs Result Diagrams: 08/21/17 00:03 08/22/17 09:03 Labs Last 24 Hours: Laboratory Results - last 24 hr 08/22/17 08/22/17 07:45 09:03 Sodium 133 L Potassium 4.5 Chloride 95 L Carbon Dioxide 27.0 Anion Gap 11.0 BUN 35 H Creatinine 1.0 Estimated GFR > 60 POC Glucose 199 H Random Glucose 247 H Calcium 9.4 NT-Pro-B Natriuret Pep 3654.00 H DVT/PE Assessment - Risk for VTE Risk for VTE: No Risk Level: High Risk Assessment Date: 08/21/17 Risk Assessment Time: 10:00 VTE Orders Placed or Will Be Placed: Yes - Active Medicaitons Current Medications: Current Medications Acetaminophen (Tylenol 500mg Tab) 1,000 mg PO Q6H PRN PRN Reason: PAIN/TEMP Albuterol Sulfate () 2.5 mg INH RESP.Q4H PRN PRN Reason: DIFFICULTY IN BREATHING Albuterol/Ipratropium (Duoneb) 3 ml INH RESP.Q6H PRN PRN Reason: Wheezing Last Admin: 08/21/17 09:19 Dose: 3 ml Amiodarone HCl (Pacerone) 200 mg PO DAILY [facility] [place] Last Admin: 08/22/17 09:36 Dose: 200 mg Amlodipine Besylate (Norvasc) 10 mg PO QHS [facility] [place] Last Admin: 08/21/17 22:45 Dose: 10 mg Aspirin (Aspirin Chewable) 81 mg PO DAILY [facility] [place] Last Admin: 08/22/17 09:37 Dose: 81 mg Atorvastatin Calcium (Lipitor) 20 mg PO QHS [facility] [place] Last Admin: 08/21/17 22:44 Dose: 20 mg Clonidine HCl (Catapres) 0.2 mg PO BID [facility] [place] Last Admin: 08/22/17 09:36 Dose: 0.2 mg Furosemide (Lasix Iv) 40 mg IVP DAILY [facility] [place] Last Admin: 08/22/17 09:36 Dose: 40 mg Glipizide (Glucotrol) 2.5 mg PO DAILYWM [facility] [place] Last Admin: 08/22/17 09:36 Dose: 2.5 mg Ceftriaxone Sodium 1 gm/ (Sodium Chloride) 100 mls @ 200 mls/hr IVPB Q12HR [facility] Stop: 08/26/17 12:16 Last Admin: 08/22/17 09:45 Dose: 200 mls/hr Magnesium Hydroxide (Milk Of Magnesium) 30 ml PO DAILY PRN PRN Reason: INDIGESTION Last Admin: 08/22/17 09:51 Dose: 30 ml Metformin HCl (Glucophage Ir) 1,000 mg PO BID [facility] Last Admin: 08/22/17 09:36 Dose: 1,000 mg Methylprednisolone Sodium Succinate (Solu-Medrol) 60 mg IVP DAILY [facility] [place] Last Admin: 08/22/17 09:36 Dose: 60 mg Metoprolol Succinate (Toprol Xl) 50 mg PO QHS [facility] [place] Last Admin: 08/21/17 22:43 Dose: 50 mg Metoprolol Succinate (Toprol Xl) 100 mg PO QAM [facility] [place] Last Admin: 08/22/17 09:37 Dose: 100 mg Non-Formulary Medication (Sacubitril/Valsartan [Entresto 97 Mg-103 Mg Tablet]) 1 tab PO BID [facility] Last Admin: 08/22/17 09:43 Dose: 1 tab Non-Formulary Medication (Sulindac [Sulindac]) 200 mg PO BID [facility] Last Admin: 08/22/17 09:43 Dose: 200 mg Potassium Chloride (Klor-Con) 10 meq PO DAILY [facility] Last Admin: 08/22/17 09:36 Dose: 10 meq Rivaroxaban (Xarelto) 20 mg PO QHS [facility] Last Admin: 08/21/17 22:45 Dose: 20 mg Sodium Chloride () 10 ml IVP Q12H [facility] Last Admin: 08/22/17 09:37 Dose: 10 ml AMI Plan - Labs Result Diagrams: 08/21/17 00:03 08/22/17 09:03
[2017-08-22] MEDS: ATORVASTATIN 20 MG TABLET PO SCH (21:23)
[2017-08-22] MEDS: AMLODIPINE BESYLATE 5MG TAB PO SCH (21:23)
[2017-08-22] MEDS: RIVAROXABAN 20 MG TABLET PO SCH (21:23)
[2017-08-23] MEDS: GLIPIZIDE 5 MG TABLET PO SCH (08:20)
[2017-08-23] MEDS: ANORO (UMECLIDINIUM & VILANTEROL) 62.5MCG/25MCG INH IH SCH (09:47)
[2017-08-23] MEDS ORDERED: FUROSEMIDE 40 MG TABLET PO SCH (10:00)
--- NOTE | 2017-08-23 10:18 | Discharge Summary ---
Providers Discharge Summary Date: 08/23/17 Date of admission: 08/21/17 02:06 Attending physician: ALMA LIU Primary care physician: REA [facility] D.O[facility] Physical Exam - Vital Signs Vital Signs: Vital Signs - Last 24 Hrs Temp Pulse Pulse Pulse Resp BP BP 08/23/17 09:59 87 17 08/23/17 08:35 86 86 20 08/23/17 04:00 81 18 152/70 08/23/17 00:00 80 18 132/74 08/22/17 22:00 97.7 F 67 18 129/65 08/22/17 20:33 90 18 08/22/17 18:00 97.6 F 76 18 120/73 08/22/17 14:00 97.6 F 78 18 106/72 Pulse Ox 08/23/17 09:59 95 08/23/17 08:35 08/23/17 04:00 94 L 08/23/17 00:00 95 08/22/17 22:00 96 08/22/17 20:33 08/22/17 18:00 96 08/22/17 14:00 95 - General General Appearance: Alert, Oriented x3, Cooperative, No acute distress Limitations: No limitations - Head Head exam: Normal inspection, Other (corrective lenses) - Eye Eye exam: Normal appearance, PERRL, EOMI Pupils: Normal accommodation - ENT ENT exam: Normal exam, Mucous membranes moist, Normal external ear exam, Normal orophraynx Ear exam: Normal external inspection. negative: External canal tenderness Nasal Exam: Normal inspection. negative: Discharge, Sinus tenderness Mouth exam: Normal external inspection, Tongue normal Teeth exam: Normal inspection. negative: Dental caries Throat exam: Normal inspection. negative: Tonsillar erythema, Tonsillar exudate - Neck Neck exam: Normal inspection, Full ROM. negative: Lymphadenopathy, Tenderness - Respiratory Respiratory exam: Normal lung sounds bilaterally, Wheezes (faint, b/l bases). negative: Accessory muscle use, Chest wall tenderness, Rales, Respiratory distress, Rhonchi, Stridor - Cardiovascular Cardiovascular Exam: Regular rate Peripheral Pulses: 2+: Dorsalis Pedis (R), Dorsalis Pedis (L), 3+: Radial (R), Radial (L) - GI/Abdominal GI/Abdominal exam: Soft, Normal bowel sounds. negative: Tenderness - Rectal Rectal exam: Deferred - exam: Deferred - Extremities Extremities exam: Normal inspection, Full ROM, Normal capillary refill. negative: Tenderness - Back Back exam: Reports: Normal inspection, Full ROM. Denies: Muscle spasm, Rash noted, Tenderness - Neurological Neurological exam: Alert, CN II-XII intact, Normal gait, Oriented X3 - Psychiatric Psychiatric exam: Normal affect, Normal mood - Skin Skin exam: Dry, Intact, Normal color, Warm, Other (vertical scar low back and sternum from prior surgeries) Hospitalization - Hospitalization Admission Diagnosis: chf, copd, pleural effusions, hypoxia - Problem List/Discharge Diagnosis (1) CHF (congestive heart failure) Status: Acute Discharge Diagnosis: Heart failure type: unspecified Heart failure chronicity: acute Qualified Code(s): I50.9 - Heart failure, unspecified Base Code: I50.9 - HEART FAILURE, UNSPECIFIED Comment: 08/23/17 - compensated w/o evidence of volume overload. - cont Entresto 97-103 mg QD, Toprolol XR 100 mg qd, 50 mg qhs, Lasix from 40 mg IV QD to PO 40 mg. - caridac monitor, cardiac diet, daily weights, Is & Os. - outpatient cardiology follow up recommended. (2) COPD (chronic obstructive pulmonary disease) Status: Acute Discharge Diagnosis: COPD type: COPD with acute exacerbation Qualified Code(s): J44.1 - Chronic obstructive pulmonary disease with (acute) exacerbation Base Code: J44.9 - CHRONIC OBSTRUCTIVE PULMONARY DISEASE, UNSPECIFIED Comment : 08/23/17 - Duo neb Q4H PRN, Solu medrol to Predninsone 40mg daily x 2 more days. - change to Cefdinir 300mg BID from 1 gm of IV Roecphin Q12H - titrate oxygen to maintain oxygen sats > 92%, currently requiring 2 liters. Home oxygen qualifier prior to d/c and nebulizer script completed. - follow up CXR/CT as outpatient as per PCP (3) DVT prophylaxis Status: Acute Base Code: [id number] - Comment: 08/23/17 - patient on xarelto (4) Diabetes Status: Acute Base Code: E11.9 - TYPE 2 DIABETES MELLITUS WITHOUT COMPLICATIONS Comment: 08/23/17 - continue home medications (Metformin 1000 mg daily, glipize 2.5 mg daily). (5) HTN (hypertension) Status: Acute Base Code: I10 - ESSENTIAL (PRIMARY) HYPERTENSION Comment: 08/23/17 - home HTN/CHF/arrhythmia meds (Entresto 97-103 mg QD, Toprolol XR 100 mg qd, 50 mg qhs, Lasix, catapress 0.2 mg daily, norvasc 10 mg qhs, amiodarone). - cardiac/diabetic diet, environmental monitoring technician, VSQ4H (6) Full code status Status: Acute Base Code: Z78.9 - OTHER SPECIFIED HEALTH STATUS Comment: - FULL CODE - Hospitalization Course Disposition: Home Health Service Hospital Course: 76 yo male admitted for COPD/CHF exacerbation. Patient initially presented to our ED on 08/14, he was given breathing treatment and sent home. Patient felt he should have stayed at the hospital at that time, however his recently passed and her was 08/18. Patient returned to our ED yesterday evening c /o one week of increased work of breathing and LE swelling. Upon presentation, O2 91% on RA, otherwise relatively unremarkable. hgb 13.7, hct 41, normal wbc, BUN 32 otherwise unremarkable CMP. troponin negative x 1. BNP 5185, d dimer 0.75. CTA:negative for PE or aneurysm. CMG w/ bilateral pleural eff suspicious for fluid overload/CHF, mixed opacities in each lung base consistent with atelectasis, infiltrate or edema. healed graulomatous ds in the lungs. ground glass opacity in the anterolateral right upper lobe is non specific but likely an area of atelectasis or infiltrate. follow up CT chest exam in 6 mo's recommended. calcified pleural plaques, mild nodulatiry of the left adrenal gland, left renal cyst. Patient felt his pulmonary status improved following IV steroid, breathing treatment, supplemental O2 and IV lasix. However, patient required continued supp O2. patient placed on environmental monitoring technician & admitted for further medical management. 08/21- patient sitting up in bed this morning. states he's feeling much better. He feels like he's not breathing as quickly and his legs are less swollen. Denies cp, fever, chills, sputum production, dysuria, n/v, change in bowel habits, weakness, lightheadedness, dizziness, skin changes, or headache. Tolerating meals. Ambulating the room. States he's never been told he had COPD. PFT 03/2016- restrictive vent defect. diffuse capacity of 79%. H/o smoking- 1ppd x 30 years. quit 13 years ago. Significant cardiac history include quad bypass in 2000, ICD for heart arrhythmia, follows with Dr. Salgado ( [employer]) every 2-3 months. 08/23/17: the patient is sitting up in the bedside ty with no complaints. On examination he has no wheezing or shortness of breath. Vital signs are stable this morning. Discharge is planned for this afternoon with home health services. Abnormal Labs: Abnormal Lab Results 08/22/17 08/22/17 Range/Units 07:45 09:03 Sodium 133 L (136-145) mmol/L Chloride 95 L (98-107) mmol/L BUN 35 H (8-23) mg/dL POC Glucose 199 H (70-110) mg/dL Random Glucose 247 H (74-109) mg/dL NT-Pro-B Natriuret Pep 3654.00 H (<450) pg/mL Condition at Discharge: (2) Stable Discharge Medications - Discharge Medications Prescriptions: Albuterol Sulfate 0.083% [Neb] 2.5 mg INH Q6H PRN 30 Days #120 nebulization solution PRN Reason: Difficulty In Breathing Cefdinir 300 mg PO Q12H 3 Days #6 capsule Prednisone [Deltasone] 40 mg PO DAILY 2 Days #4 tablet Umeclidinium Brm/Vilanterol Tr [Anoro Ellipta 62.5-25 Mcg INH] 1 puff IH RESP.DAILY #1 inhaler Home Medications: Ambulatory Orders Amiodarone HCl [Pacerone] 200 mg PO DAILY 08/14/17 [Last Taken Unknown] Aspirin 81 mg PO DAILY 08/14/17 [Last Taken Unknown] Clonidine HCl 0.2 mg PO BID 08/14/17 [Last Taken Unknown] Furosemide 40 mg PO DAILY 08/14/17 [Last Taken Unknown] Glyburide 1.25 mg PO DAILY 08/14/17 [Last Taken Unknown] Metformin HCl 1,000 mg PO BID 08/14/17 [Last Taken Unknown] Metoprolol Succinate [Toprol Xl] 50 mg PO QPM 08/14/17 [Last Taken Unknown] Metoprolol Succinate [Toprol Xl] 100 mg PO QAM 08/14/17 [Last Taken Unknown] Potassium Chloride 10 meq PO DAILY 08/14/17 [Last Taken Unknown] Rivaroxaban [Xarelto] 20 mg PO DAILY 08/14/17 [Last Taken Unknown] Sacubitril/Valsartan [Entresto 97 mg-103 mg Tablet] 1 tab PO BID 08/14/17 [Last Taken Unknown] Sulindac 200 mg PO BID 08/14/17 [Last Taken Unknown] Albuterol Sulfate 0.083% [Neb] 2.5 mg INH Q6H PRN 30 Days #120 nebulization solution 08/23/17 [Last Taken Unknown] Cefdinir 300 mg PO Q12H 3 Days #6 capsule 08/23/17 [Last Taken Unknown] Clonidine HCl [Catapres] 0.2 mg PO BID tablet 08/23/17 [Last Taken Unknown] Furosemide [Lasix] 40 mg PO DAILY tablet 08/23/17 [Last Taken Unknown] Metformin HCl [Glucophage Ir] 1,000 mg PO BID tablet 08/23/17 [Last Taken Unknown] Prednisone [Deltasone] 40 mg PO DAILY 2 Days #4 tablet 08/23/17 [Last Taken Unknown] Umeclidinium Brm/Vilanterol Tr [Anoro Ellipta 62.5-25 Mcg INH] 1 puff IH RESP.DAILY #1 inhaler 08/23/17 [Last Taken Unknown] Discharge Plan - Discharge Instructions Activity at Discharge: Increase Activity as Tolerated Diet at Discharge: Diabetic Diet, Low Fat, Low Cholesterol, Low Salt Diet Instructions: Cefdinir (By mouth), Heart Failure (DC), COPD (Chronic Obstructive Pulmonary Disease) (DC), Pneumonia (DC) Additional Instructions: Appointments have been scheduled for you as follows: August 27 at 12:[address] San. Follow up with Dr. Lopez (Cardiology) for CHF/Afib/HTN Home care nursing planned. Quality Measures - Quality Measures Quality Measures: Advance Directives, Documentation of Current Medications in Medical Record, Elder Maltreatment Screen and Follow-Up Plan, Heart Failure, Screening for High Blood Pressure and F/U Documented - Current Medications Quality Measure: Measure #130: Documentation of Current Medications Documentation of Current Medications: <Current Medications Documented/Reviewed> [G8427] - Blood Pressure Screening Quality Measure: Screening for High Blood Pressure and Follow-Up Documented Does Patient Have Any of the Following: Active Dx of HTN Blood Pressure Classification: Pre-Hypertensive BP Reading Systolic Measurement: 133 Diastolic Measurement: 89 Screening for High Blood Pressure: Patient Exclusion, Hx of HTN [G9744] - Heart Failure (TERELL/ARB Therapy) Quality Measure: Heart Failure Left Ventricular Systolic Function: Unknown TERELL Inhibitor or ARB Therapy for LVSD: Not Eligible - Heart Failure (Beta-anca Therapy) Quality Measure: Heart Failure Left Ventricular Systolic Function: Unknown Beta-Anca Therapy for LVEF < 40%: Not Eligible - Advance Directives Quality Measure: Measure #47: Care Plan Advance Directives Established: No Advance Directives Information Provided To Patient: No Advance Directives on File: No Living Will: Yes Power of Lamination Spinner: (unsure) Advance Care Planning: Not Discussed or Documented [[id number]] - Elder Abuse Suspicion Index Screening: Elder Abuse Suspicion Index Screening Rely on people for bathing, dressing, shopping, banking, etc: No Prevented from getting food, clothes, medication, etc: No Made to feel shamed or threatened by someone: No Forced to sign papers or use money against will: No Feel afraid, touched in ways not wanted or hurt physically: No Poor eye contact, withdrawn, malnourished, cuts or bruises: No Screening Result: Negative result EASI Reference Information: Ricarda DAVEY, Keesha C, Alondra D, Luisana M.Development and validation of a tool to assist physicians identification of elder abuse: The Elder Abuse Suspicion Index (EASI ). Journal of Elder Abuse and Neglect, 2008; 20 (3): 276-300. - Elder Maltreatment Screen Quality Measures: Elder Maltreatment Screen and Follow-Up Plan Elder Maltreatment Screen: <Negative, No Follow-Up Plan Required> [G8734]
[2017-08-23] MEDS ORDERED: CEFDINIR 300 MG CAPSULE PO SCH (10:30)
[2017-08-23] MEDS: ASPIRIN 81 MG CHEWABLE TABLET PO SCH (10:41)
[2017-08-23] MEDS: 0.9 % SODIUM CHLORIDE 10ML SYR IVP SCH (10:41)
[2017-08-23] MEDS: POTASSIUM CHLORIDE 10 MEQ TAB PO SCH (10:42)
[2017-08-23] MEDS: AMIODARONE HCL 200 MG TABLET PO SCH (10:42)
[2017-08-23] MEDS: METOPROLOL SUCC 50 MG TABLET PO SCH (10:44)
[2017-08-23] MEDS: METFORMIN 500 MG TABLET PO SCH (10:45)
[2017-08-23] MEDS: CLONIDINE HCL 0.1 MG TABLET PO SCH (10:46)
[2017-08-23] MEDS: SACUBITRIL PO SCH (10:59)
[2017-08-23] MEDS: VALSARTAN PO SCH (10:59)
[2017-08-23] MEDS: SULINDAC 200 MG PO SCH (10:59)
[2017-08-23] MEDS: CEFTRIAXONE SODIUM 1 GM in 0.9 % SODIUM CHLORIDE 100ML 100 ML IVPB SCH (11:05)
[2017-08-23] MEDS: METHYLPREDNISOLONE PF 125MG/VIAL IVP SCH (11:06)
== END 2017-08-23 13:13 | disposition home health service (06) | DRG 292 ==
LOC: ER 23:26 → MEDSURG 08-21 02:06
PROVIDERS: ADMIT Internal Medicine; ATTEND Internal Medicine
DX: I50.9 Heart failure, unspecified (principal); J90 Pleural effusion, not elsewhere classified; J44.9 Chronic obstructive pulmonary disease, unspecified; R09.02 Hypoxemia; R60.0 Localized edema; R91.1 Solitary pulmonary nodule; R05 Cough; I10 Essential (primary) hypertension; E11.9 Type 2 diabetes mellitus without complications; M19.90 Unspecified osteoarthritis, unspecified site; I25.2 Old myocardial infarction; Z95.0 Presence of cardiac pacemaker; Z85.46 Personal history of malignant neoplasm of prostate; Z87.891 Personal history of nicotine dependence; E66.9 Obesity, unspecified
CPT/HCPCS: 36416; 71275; 80048; 82948; 83880; 84484; 85025; 85379; 90670; 94620; 94640; 94760; 96372; 96374; 96375; 99223; 99233; 99239; 99285; J1940; J2930; J7613

== ENCOUNTER 2017-09-10 03:28 | Observation (INO) | payer MEDICARE ==
[2017-09-10] MEDS ORDERED: IPRATROPIUM/ALBUTEROL (0.5MG/3MG) NEB INH ONE (03:35)
--- NOTE | 2017-09-10 03:40 | Emergency Department Record ---
History of Present Illness - General Chief Complaint: Difficulty Breathing Stated Complaint: MARCO ANTONIO Time Seen by Provider: 09/10/17 03:35 Source: Patient Mode of Arrival: Ambulatory Limitations: No limitations - History of Present Illness Initial Comments: 76 yo male presents to ED for evaluation of difficulty in breathing symptoms that began yesterday. Patient reports that he was admitted and treated for pneumonia 3 weeks ago, denies recent fevers, chills, or cough symptoms. Patient denies chest pain or lower extremity edema symptoms. Patient reports that he his MARCO ANTONIO worsened this morning and that he "panicked" as he was unable to breathe. MD Complaint: Shortness of breath Onset/Timin -: Days(s) Severity: Moderate Consistency: Constant Improves With: Nothing Worsens With: Nothing Context: Recent URI Associated Symptoms: Denies other symptoms Treatments Prior to Arrival: None - Related Data Home Oxygen Therapy: No Previous Rx's Medication Instructions Recorded Albuterol Sulfate 0.083% [Neb] 2.5 mg INH Q6H PRN 30 Days #120 08/23/17 nebulization solution Cefdinir 300 mg PO Q12H 3 Days #6 capsule 08/23/17 Clonidine HCl [Catapres] 0.2 mg PO BID tablet 08/23/17 Furosemide [Lasix] 40 mg PO DAILY tablet 08/23/17 Metformin HCl [Glucophage Ir] 1,000 mg PO BID tablet 08/23/17 Umeclidinium Brm/Vilanterol Tr 1 puff IH RESP.DAILY #1 inhaler 08/23/17 [Anoro Ellipta 62.5-25 Mcg INH] Allergies Allergy/AdvReac Type Severity Reaction Status Date / Time No Known Drug Allergies Allergy Verified 08/14/17 23:57 Review of Systems Constitutional: Denies: Chills, Fever, Malaise, Night sweats Eyes: Denies: Eye discharge, Eye pain ENT: Denies: Congestion, Ear pain, Epistaxis Respiratory: Reports: Dyspnea. Denies: Cough, Hemoptysis, Stridor Cardiovascular: Reports: Dyspnea on exertion. Denies: Chest pain Endocrine: Denies: Fatigue, Heat or cold intolerance Gastrointestinal: Denies: Abdominal pain, Nausea, Vomiting Genitourinary: Denies: Incontinence, Retention Musculoskeletal: Denies: Arthralgia, Back pain, Gout, Joint swelling Skin: Denies: Bruising, Change in color Neurological: Denies: Abnormal gait, Confusion, Headache Psychiatric: Denies: Anxiety Hematological/Lymphatic: Denies: Anemia, Blood Clots Past Medical History - SOCIAL HISTORY Smoking Status: Former smoker Drug Use: None - RESPIRATORY Hx Respiratory Disorders: Yes Hx Asthma: No Hx Bronchitis: No Hx COPD: No Hx Dyspnea: Yes Hx Pneumonia: No Hx Pulmonary Embolism: No Hx Tuberculosis: No Hx of CPAP: Yes - CARDIOVASCULAR Hx Cardio Disorders: Yes Hx Abnormal EKG: Yes Hx Cardiac Cath: No Hx Chest Pain: No Hx CHF: Yes Hx Deep Vein Thrombosis: No Hx Edema: Yes Hx Heart Attack: Yes Hx Hypertension: Yes Hx Hypotension: No Hx Irregular Heartbeat: Yes Hx Palpitations: No Hx Vascular Disease: No - NEURO Hx Neuro Disorders: No Hx Brain Tumor: No Hx CVA: No Hx Dementia: No Hx Dizziness: No Hx Headaches: No Hx Neuropathy: No Hx Parkinson's Disease: No Hx Seizures: No Hx Speech Problem: No Hx TIA: No - GI Hx GI Disorders: No Hx Abdominal Pain: No Hx Celiac Disease: No Hx Crohn's Disease: No Hx Diverticulitis: No Hx GI Bleed: No Hx Reflux: No Hx Hepatitis/Jaundice: No Hx Hiatal Hernia: No Hx Irritable Bowel: No Hx Liver Disease: No Hx Nausea/Vomiting: No Hx Obstructive Bowel: No Hx Pancreatitis: No Hx Rectal Bleeding: No Hx Ulcer: No Hx Wt Loss/Wt Gain: No Hx of Polyps: No - Hx Genitourinary Disorders: Yes Hx Bladder Problem: No Hx Dialysis: No Hx Kidney Stones: Yes Hx Prostate Problems: Yes Hx Renal Disease: No Hx UTI: No - ENDOCRINE Hx Endocrine Disorders: Yes Hx Diabetes: Yes (DM2) Hx Thyroid Disease: No - MUSCULOSKELETAL Hx Musculoskeletal Disorders: Yes Hx Arthritis: Yes Hx Back Injury: No Hx Fibromyalgia: No Hx Gout: No Hx Musculoskeletal Disease: No Hx Osteoporosis: No - PSYCH Hx Psych Problems: No Hx Anxiety: No Hx Behavior Problems: No Hx Depression: No Hx Emotional Abuse: No Hx Sexual Abuse: No Hx Suicide Attempt: No Comment:: recent - HEMATOLOGY/ONCOLOGY Hx Hematology/Oncology Disorders: No Family Medical History Hx Alcohol Use: Father Hx Diabetes: Brother/Sister Hx HTN: Father, Mother, Brother/Sister Physical Exam - General General Appearance: Alert, Oriented x3, Cooperative, Moderate distress Limitations: No limitations - Head Head exam: Atraumatic, Normocephalic, Normal inspection Head exam detail: negative: Abrasion, Contusion, Stauffer's sign, General tenderness, Hematoma, Laceration - Eye Eye exam: Normal appearance. negative: Conjunctival injection, Periorbital swelling, Periorbital tenderness, Scleral icterus - ENT Ear exam: negative: Auricular hematoma, Auricular trauma Nasal Exam: negative: Active bleeding, Discharge, Dried blood, Foreign body Mouth exam: negative: Drooling, Laceration, Muffled voice, Tongue elevation - Neck Neck exam: Normal inspection. negative: Meningismus, Tenderness - Respiratory Respiratory exam: Decreased breath sounds. negative: Respiratory distress, Rhonchi, Stridor, Wheezes - Cardiovascular Cardiovascular Exam: Regular rate, Normal rhythm, Normal heart sounds - GI/Abdominal GI/Abdominal exam: Soft. negative: Rebound, Rigid, Tenderness - Rectal Rectal exam: Deferred - exam: Deferred - Extremities Extremities exam: Normal inspection. negative: Pedal edema, Tenderness - Back Back exam: Denies: CVA tenderness (R), CVA tenderness (L) - Neurological Neurological exam: Alert, Normal gait, Oriented X3 - Psychiatric Psychiatric exam: Normal affect, Normal mood - Skin Skin exam: Normal color. negative: Abrasion Type of lesion: negative: abrasion Course - Reevaluation(s) Reevaluation #1: 09/10/17 03:53 EKG: Paced rhythm 83 No further analysis due to paced rhythm Unchanged from 08/15/17 Reevaluation #2: 09/10/17 04:23 CXR: AICD, chronic changes bilaterally Patient reassessed, reports improvement following duoneb. Will continue to monitor. Reevaluation #3: 09/10/17 04:40 BNP reviewed, lowest level compared with recent previous from 08/21, 08/22. WIll perform ambulating biox at this time. Reevaluation #4: 09/10/17 04:46 Ambulating biox performed, patient reports that he became dyspnic, oxygen saturation around 91-93% with increased RR. Will admit for observation for likely bronchospasm symptoms. Medical Decision Making - Lab Data Result diagrams: 09/10/17 03:40 09/10/17 03:40 Disposition Disposition: Admit Clinical Impression: Bronchospasm Disposition: Still a Patient at [facility] Decision to Admit: Admit from ER Decision to Admit Date: 09/10/17 Decision to Admit Time: 04:48 Condition: (2) Stable Time of Disposition: 04:48 Quality - Quality Measures Quality Measures: N/A - Blood Pressure Screening Does Patient Have Any of the Following: Active Dx of HTN Blood Pressure Classification: Hypertensive Reading Systolic Measurement: 138 Diastolic Measurement: 105 Screening for High Blood Pressure: Patient Exclusion, Hx of HTN [G9744]
[2017-09-10 04:00] LABS: HEMATOCRIT 38.3 % (42.0-52.0); HEMOGLOBIN 12.8 gm/dl (14.0-18.0); MEAN CELL VOLUME 95.3 fl (81-97); MEAN CORPUSCULAR HEMOGLOBIN 31.8 pg (27-33); MEAN CORPUSCULAR HGB CONC 33.4 g/dl (32-36); MEAN PLATELET VOLUME 9.8 fl (7.4-10.4); PLATELET COUNT 241 K/uL (130-400); RED BLOOD COUNT 4.02 M/uL (4.40-5.70); RED CELL DISTRIBUTION WIDTH 14.9 % (11.5-14.5); WHITE BLOOD COUNT W/O DIFF 5.7 K/uL (4.2-12.2)
[2017-09-10 04:11] LABS: INFLUENZA A NEGATIVE (NEGATIVE); INFLUENZA B NEGATIVE (NEGATIVE)
[2017-09-10 04:16] LABS: ALB/GLOB RATIO 1.1 (1.1-1.8); ALBUMIN 3.5 g/dL (4.0-5.0); ALKALINE PHOSPHATASE 83 U/L (40-129); ALT/SGPT 9 U/L (<41); AST/SGOT 10 U/L (10.0-50.0); BLOOD UREA NITROGEN 31 mg/dL (8-23); CREATININE 1.1 mg/dL (0.7-1.2); EST GLOMERULAR FILTRATION RATE > 60 mL/min; GLUCOSE,RANDOM 155 mg/dL (74-109); TOTAL PROTEIN 6.6 g/dL (6.6-8.7)
[2017-09-10] MEDS ORDERED: METHYLPREDNISOLONE PF 125MG/VIAL IVP ONE (04:48)
[2017-09-10] MEDS ORDERED: ALBUTEROL SULFATE (0.083%) 2.5 MG/3 ML NEB INH PRN (05:18)
[2017-09-10] MEDS ORDERED: 0.9 % SODIUM CHLORIDE 1000ML 1,000 ML IV PRN (05:18)
[2017-09-10] MEDS: IPRATROPIUM/ALBUTEROL (0.5MG/3MG) NEB INH SCH ×5 (05:31→21:03)
[2017-09-10] MEDS: ANORO (UMECLIDINIUM & VILANTEROL) 62.5MCG/25MCG INH IH SCH (05:36)
--- NOTE | 2017-09-10 07:36 | History & Physical ---
History of Present Illness - Date of Service Date of Service for History & Physical: 09/10/17 - History of Present Illness Admitting Diagnosis: Acute Bronchospasm. Hypoxia with respiratory distress History of Present Illness: 76yo with CC of shortness of breath. He has history of CHF (follows with Dr. Jacobs), h/o [place], NIDDM, SARAH (uses CPAP), obesity, HTN, h/o prostate CA s/p prostatectomy. Patient presented to the ED last night with shortness of breath. He had woken up with it in the middle of the night. He tried to sit up but that did not seem to improve his SOB and so he came to the ED. While in the ED, patient had room air saturation of 88% which improved to 91% following duoneb treatment. His EKG showed paced rhythm, rate of 83 without acute changes. His CXR showed no acute changes. His BNP was elevated, however, was lower than previous visit a month prior. His CBC showed slight anemia, hgb 12 and CMP was unremarkable. Influenza screen was negative. Patient was given one dose of solumedrol 125mg and admitted for observation. 09/10/17- Patient states he is feeling better today but not back to baseline. He feels ok resting in bed with supplemental oxygen but gets winded easily with activity. He denies any coughing, runny nose, body aches, fever, chest pain. He feels fatigued and generally weak. He does have a home health service coming out but is not receiving any PT/OT. He says following his previous admission a month ago, he did improve and was feeling back to normal until last night. He sleeps flat in bed and several times a week wakes up in the night feeling short of breath and "panics." Last night he says he couldn't calm down and had son bring him to the ED. He follows with Dr. Jacobs for cardiology in [place]. He was supposed to have an appointment today actually. He is not sure, but believes his last echo was within the past year. PCP: Dr. San Travel Screening - Travel/Exposure Within Last 30 Days Have you traveled within the last 30 days?: No - Travel/Exposure Within Last Year Have you traveled outside the [place] in the last year?: No - Additonal Travel Details Have you been exposed to anyone with a communicable illness?: No - Travel Symptoms Symptom Screening: None Review of Systems Constitutional: Denies: Chills, Fever, Malaise, Night sweats Eyes: Denies: Eye discharge, Eye pain ENT: Denies: Congestion, Ear pain, Epistaxis Respiratory: Reports: Dyspnea. Denies: Cough, Hemoptysis, Stridor Cardiovascular: Reports: Dyspnea on exertion, Paroxysmal nocturnal dyspnea. Denies: Chest pain Endocrine: Denies: Fatigue, Heat or cold intolerance Gastrointestinal: Denies: Abdominal pain, Nausea, Vomiting Genitourinary: Denies: Incontinence, Retention Musculoskeletal: Denies: Arthralgia, Back pain, Gout, Joint swelling Skin: Denies: Bruising, Change in color Neurological: Denies: Abnormal gait, Confusion, Headache Psychiatric: Denies: Anxiety Hematological/Lymphatic: Denies: Anemia, Blood Clots Past Medical History - SOCIAL HISTORY Smoking Status: Former smoker Drug Use: None - RESPIRATORY Hx Respiratory Disorders: Yes Hx Asthma: No Hx Bronchitis: No Hx COPD: No Hx Dyspnea: Yes Hx Pneumonia: No Hx Pulmonary Embolism: No Hx Tuberculosis: No Hx of CPAP: Yes - CARDIOVASCULAR Hx Cardio Disorders: Yes Hx Abnormal EKG: Yes Hx Cardiac Cath: No Hx Chest Pain: No Hx CHF: Yes Hx Deep Vein Thrombosis: No Hx Edema: Yes Hx Heart Attack: Yes Hx Hypertension: Yes Hx Hypotension: No Hx Irregular Heartbeat: Yes Hx Palpitations: No Hx Vascular Disease: No - NEURO Hx Neuro Disorders: No Hx Brain Tumor: No Hx CVA: No Hx Dementia: No Hx Dizziness: No Hx Headaches: No Hx Neuropathy: No Hx Parkinson's Disease: No Hx Seizures: No Hx Speech Problem: No Hx TIA: No - GI Hx GI Disorders: No Hx Abdominal Pain: No Hx Celiac Disease: No Hx Crohn's Disease: No Hx Diverticulitis: No Hx GI Bleed: No Hx Reflux: No Hx Hepatitis/Jaundice: No Hx Hiatal Hernia: No Hx Irritable Bowel: No Hx Liver Disease: No Hx Nausea/Vomiting: No Hx Obstructive Bowel: No Hx Pancreatitis: No Hx Rectal Bleeding: No Hx Ulcer: No Hx Wt Loss/Wt Gain: No Hx of Polyps: No - Hx Genitourinary Disorders: Yes Hx Bladder Problem: No Hx Dialysis: No Hx Kidney Stones: Yes Hx Prostate Problems: Yes Hx Renal Disease: No Hx UTI: No - ENDOCRINE Hx Endocrine Disorders: Yes Hx Diabetes: Yes (DM2) Hx Thyroid Disease: No - MUSCULOSKELETAL Hx Musculoskeletal Disorders: Yes Hx Arthritis: Yes Hx Back Injury: No Hx Fibromyalgia: No Hx Gout: No Hx Musculoskeletal Disease: No Hx Osteoporosis: No - PSYCH Hx Psych Problems: No Hx Anxiety: No Hx Behavior Problems: No Hx Depression: No Hx Emotional Abuse: No Hx Sexual Abuse: No Hx Suicide Attempt: No Comment:: recent - HEMATOLOGY/ONCOLOGY Hx Hematology/Oncology Disorders: No Family Medical History Hx Alcohol Use: Father Hx Diabetes: Brother/Sister Hx HTN: Father, Mother, Brother/Sister H&P Meds/Allergies - Allergies Allergies: Allergies Allergy/AdvReac Type Severity Reaction Status Date / Time No Known Drug Allergies Allergy Verified 08/14/17 23:57 - Home Medications Previous Rx's Medication Instructions Recorded Albuterol Sulfate 0.083% [Neb] 2.5 mg INH Q6H PRN 30 Days #120 08/23/17 nebulization solution Cefdinir 300 mg PO Q12H 3 Days #6 capsule 08/23/17 Clonidine HCl [Catapres] 0.2 mg PO BID tablet 08/23/17 Furosemide [Lasix] 40 mg PO DAILY tablet 08/23/17 Metformin HCl [Glucophage Ir] 1,000 mg PO BID tablet 08/23/17 Umeclidinium Brm/Vilanterol Tr 1 puff IH RESP.DAILY #1 inhaler 08/23/17 [Anoro Ellipta 62.5-25 Mcg INH] - Active Medications Active Medications: Current Medications Albuterol Sulfate () 2.5 mg INH RESP.Q2H PRN PRN Reason: DIFFICULTY IN BREATHING Albuterol/Ipratropium (Duoneb) 3 ml INH RESP.Q4H.[facility] Last Admin: 09/10/17 05:31 Dose: 3 ml Amiodarone HCl (Pacerone) 200 mg PO DAILY [facility] Aspirin (Aspirin Chewable) 81 mg PO DAILY [facility] Clonidine HCl (Catapres) 0.2 mg PO BID [facility] Furosemide (Lasix) 40 mg PO DAILY [facility] Sodium Chloride () 1,000 mls @ 15 mls/hr IV .Q24H PRN PRN Reason: LARGE VOLUME IV Metformin HCl (Glucophage Ir) 1,000 mg PO BID [facility] Methylprednisolone Sodium Succinate (Solu-Medrol) 125 mg IVP DAILY [facility] Metoprolol Succinate (Toprol Xl) 50 mg PO QPM [facility] Metoprolol Succinate (Toprol Xl) 100 mg PO QAM [facility] Non-Formulary Medication (Glyburide [Glyburide]) 1.25 mg PO DAILY [facility] Non-Formulary Medication (Sacubitril/Valsartan [Entresto 97 Mg-103 Mg Tablet]) 1 tab PO BID [facility] Non-Formulary Medication (Sulindac [Sulindac]) 200 mg PO BID [facility] Potassium Chloride (Klor-Con) 10 meq PO DAILY [facility] Rivaroxaban (Xarelto) 20 mg PO DAILY [facility] Physical Exam - Vital Signs Vital Signs: Vital Signs - Last 24 Hrs Temp Pulse Pulse Resp BP Pulse Ox 09/10/17 05:36 82 20 09/10/17 05:31 82 20 92 L 09/10/17 05:18 97.4 F L 80 20 122/63 93 L - General General Appearance: Alert, Oriented x3, Cooperative, No acute distress Limitations: No limitations - Head Head exam: Atraumatic, Normocephalic, Normal inspection Head exam detail: negative: Abrasion, Contusion, Stauffer's sign, General tenderness, Hematoma, Laceration - Eye Eye exam: Normal appearance. negative: Conjunctival injection, Periorbital swelling, Periorbital tenderness, Scleral icterus - ENT Ear exam: negative: Auricular hematoma, Auricular trauma Nasal Exam: negative: Active bleeding, Discharge, Dried blood, Foreign body Mouth exam: negative: Drooling, Laceration, Muffled voice, Tongue elevation - Neck Neck exam: Normal inspection. negative: Meningismus, Tenderness - Respiratory Respiratory exam: Decreased breath sounds, Rales (bilateral bases). negative: Respiratory distress, Rhonchi, Stridor, Wheezes - Cardiovascular Cardiovascular Exam: Regular rate, Normal rhythm, Normal heart sounds - GI/Abdominal GI/Abdominal exam: Soft. negative: Rebound, Rigid, Tenderness - Rectal Rectal exam: Deferred - exam: Deferred - Extremities Extremities exam: Normal inspection, Pedal edema (trace bilaterally). negative : Tenderness - Back Back exam: Denies: CVA tenderness (R), CVA tenderness (L) - Neurological Neurological exam: Alert, Normal gait, Oriented X3 - Psychiatric Psychiatric exam: Normal affect, Normal mood - Skin Skin exam: Normal color. negative: Abrasion Type of lesion: negative: abrasion Results - Labs Result Diagrams: 09/10/17 03:40 09/10/17 03:40 VTE H&P Assessment - Risk for VTE Risk for VTE: Yes Risk Level: High Risk Assessment Date: 09/10/17 Risk Assessment Time: 16:45 VTE Orders Placed or Will Be Placed: Yes Plan - Detailed Diagnosis and Plan (1) COPD exacerbation Current Visit: Yes Status: Acute Base Code: J44.1 - CHRONIC OBSTRUCTIVE PULMONARY DISEASE W (ACUTE) EXACERBATION Comment: 09/10/17- CXR read as negative initially, now possible subtle RLL infiltrate. He is satting 88% on room air and 95% with 2L via NC. His most recent PFTs from March 2017 showed a moderately restrictive with overlying obstructive pattern. He has improved symptomatically with breathing treatments, supplemental oxygen and steroids -will continue solumedrol 60mg IV. Will try and limit duration with CHF -doxycycline 100mg po bid -duoneb q4h while awake -home oxygen qualifier ordered. SW will plan to set up home oxygen if qualified -conitnue supplemental O2 to keep sats >92% -vitals q8H (2) CHF (congestive heart failure) Current Visit: No Status: Acute Qualifiers: Heart failure type: unspecified Heart failure chronicity: acute Qualified Code(s): I50.9 - Heart failure, unspecified Base Code: I50.9 - HEART FAILURE, UNSPECIFIED Comment: 09/10/17 - compensated w/o evidence of volume overload. - cont Entresto 97-103 mg QD, Toprolol XR 100 mg qd, 50 mg qhs, Lasix PO 40 mg. - caridac monitor, cardiac diet, daily weights, Is & Os. -elevate head of bed while sleeping. Wrote script for hospital bed and SW is setting that up - outpatient cardiology follow up recommended will need to reschedule apt. with Dr. Jacobs (3) DVT prophylaxis Current Visit: No Status: Acute Base Code: [id number] - Comment: 09/10/17- - patient on xarelto (4) Full code status Current Visit: No Status: Acute Base Code: Z78.9 - OTHER SPECIFIED HEALTH STATUS Comment: 09/10/17- patient is full code
[2017-09-10] MEDS ORDERED: Non-Formulary MISC (Clonidine Hcl [Clonidine Hcl] 0.2 MG) PO SCH (10:00)
[2017-09-10] MEDS ORDERED: METHYLPREDNISOLONE PF 125MG/VIAL IVP SCH (10:00)
[2017-09-10] MEDS: ASPIRIN 81 MG CHEWABLE TABLET PO SCH (10:38)
[2017-09-10] MEDS: METOPROLOL SUCC 50 MG TABLET PO SCH ×3 (10:40→21:53)
[2017-09-10] MEDS: CLONIDINE HCL 0.1 MG TABLET PO SCH ×2 (10:40→21:51)
[2017-09-10] MEDS: AMIODARONE HCL 200 MG TABLET PO SCH (10:40)
[2017-09-10] MEDS: METFORMIN 500 MG TABLET PO SCH ×2 (10:40→21:52)
[2017-09-10] MEDS: METHYLPREDNISOLONE PF 125MG/VIAL IVP SCH (10:40)
[2017-09-10] MEDS: GLIPIZIDE 5 MG TABLET PO SCH (10:41)
[2017-09-10] MEDS: SACUBITRIL PO SCH ×2 (10:42→21:53)
[2017-09-10] MEDS: FUROSEMIDE 40 MG TABLET PO SCH (10:42)
[2017-09-10] MEDS: VALSARTAN PO SCH ×2 (10:42→21:53)
[2017-09-10] MEDS: POTASSIUM CHLORIDE 10 MEQ TAB PO SCH (10:42)
[2017-09-10] MEDS: SULINDAC 200 MG PO SCH ×2 (10:43→21:53)
--- NOTE | 2017-09-10 19:01 | RADIOLOGY REPORT ---
EXAM: CHEST 2 VIEWS HISTORY: DIFFICULTY BREATHING. TECHNIQUE: Frontal and lateral views of the chest were performed. COMPARISON: 08/15/2017. FINDINGS: Left-sided pacing device in place. Post-op sternotomy wires. Heart size is normal. Chronic underlying interstitial lung disease. Possible subtle infiltrate right lower lobe. IMPRESSION: CHRONIC UNDERLYING INTERSTITIAL LUNG DISEASE. SUBTLE SUPERIMPOSED INFILTRATE RIGHT LOWER LOBE. JOB NUMBER: [id number] MTDD
[2017-09-10] MEDS: DOXYCYCLINE HYCLATE 100 MG CAPSULE PO SCH (21:51)
[2017-09-10] MEDS ORDERED: RIVAROXABAN 20 MG TABLET PO SCH (22:00)
[2017-09-11] MEDS: IPRATROPIUM/ALBUTEROL (0.5MG/3MG) NEB INH SCH ×2 (06:39→09:54)
[2017-09-11] MEDS: ANORO (UMECLIDINIUM & VILANTEROL) 62.5MCG/25MCG INH IH SCH (06:41)
[2017-09-11] MEDS: GLIPIZIDE 5 MG TABLET PO SCH (08:05)
[2017-09-11] MEDS ORDERED: DOCUSATE SODIUM 100 MG CAPSULE PO SCH (10:00)
[2017-09-11] MEDS: SACUBITRIL PO SCH (10:11)
[2017-09-11] MEDS: VALSARTAN PO SCH (10:11)
[2017-09-11] MEDS: SULINDAC 200 MG PO SCH (10:12)
[2017-09-11] MEDS: ASPIRIN 81 MG CHEWABLE TABLET PO SCH (10:12)
[2017-09-11] MEDS: FUROSEMIDE 40 MG TABLET PO SCH (10:13)
[2017-09-11] MEDS: AMIODARONE HCL 200 MG TABLET PO SCH (10:13)
[2017-09-11] MEDS: DOXYCYCLINE HYCLATE 100 MG CAPSULE PO SCH (10:14)
[2017-09-11] MEDS: POTASSIUM CHLORIDE 10 MEQ TAB PO SCH (10:14)
[2017-09-11] MEDS: METOPROLOL SUCC 50 MG TABLET PO SCH (10:15)
[2017-09-11] MEDS: CLONIDINE HCL 0.1 MG TABLET PO SCH (10:16)
[2017-09-11] MEDS: METFORMIN 500 MG TABLET PO SCH (10:16)
[2017-09-11] MEDS: METHYLPREDNISOLONE PF 125MG/VIAL IVP SCH (10:30)
--- NOTE | 2017-09-11 12:35 | Discharge Summary ---
Providers Discharge Summary Date: 09/11/17 Date of admission: 09/10/17 05:10 Attending physician: ALMA LIU Physical Exam - Vital Signs Vital Signs: Vital Signs - Last 24 Hrs Temp Pulse Pulse Pulse Resp BP Pulse Ox 09/11/17 09:56 81 16 97 09/11/17 09:00 94 L 09/11/17 08:11 80 80 21 09/11/17 06:47 81 16 100 09/11/17 06:44 80 16 100 09/11/17 05:00 97.4 F L 80 20 118/64 94 L 09/10/17 21:03 20 L 98 H 96 09/10/17 20:51 97.5 F L 80 22 117/60 96 09/10/17 17:09 83 17 96 09/10/17 13:39 81 18 97 09/10/17 13:18 97.7 F 79 18 125/80 92 L - General General Appearance: Alert, Oriented x3, Cooperative, No acute distress Limitations: No limitations - Head Head exam: Atraumatic, Normocephalic, Normal inspection Head exam detail: negative: Abrasion, Contusion, Stauffer's sign, General tenderness, Hematoma, Laceration - Eye Eye exam: Normal appearance. negative: Conjunctival injection, Periorbital swelling, Periorbital tenderness, Scleral icterus - ENT Ear exam: negative: Auricular hematoma, Auricular trauma Nasal Exam: negative: Active bleeding, Discharge, Dried blood, Foreign body Mouth exam: negative: Drooling, Laceration, Muffled voice, Tongue elevation - Neck Neck exam: Normal inspection. negative: Meningismus, Tenderness - Respiratory Respiratory exam: Decreased breath sounds, Rales (bilateral bases). negative: Respiratory distress, Rhonchi, Stridor, Wheezes - Cardiovascular Cardiovascular Exam: Regular rate, Normal rhythm, Normal heart sounds - GI/Abdominal GI/Abdominal exam: Soft. negative: Rebound, Rigid, Tenderness - Rectal Rectal exam: Deferred - exam: Deferred - Extremities Extremities exam: Normal inspection, Pedal edema (trace bilaterally). negative : Tenderness - Back Back exam: Denies: CVA tenderness (R), CVA tenderness (L) - Neurological Neurological exam: Alert, Normal gait, Oriented X3 - Psychiatric Psychiatric exam: Normal affect, Normal mood - Skin Skin exam: Normal color. negative: Abrasion Type of lesion: negative: abrasion Hospitalization - Hospitalization Admission Diagnosis: Acute Bronchospasm. Hypoxia with respiratory distress - Hospitalization Course Hospital Course: 76yo with CC of shortness of breath. He has history of CHF (follows with Dr. Jacobs), h/o [place], NIDDM, SARAH (uses CPAP), obesity, HTN, h/o prostate CA s/p prostatectomy. Patient presented to the ED last night with shortness of breath. He had woken up with it in the middle of the night. He tried to sit up but that did not seem to improve his SOB and so he came to the ED. While in the ED, patient had room air saturation of 88% which improved to 91% following duoneb treatment. His EKG showed paced rhythm, rate of 83 without acute changes. His CXR showed no acute changes. His BNP was elevated, however, was lower than previous visit a month prior. His CBC showed slight anemia, hgb 12 and CMP was unremarkable. Influenza screen was negative. Patient was given one dose of solumedrol 125mg and admitted for observation. 09/10/17- Patient states he is feeling better today but not back to baseline. He feels ok resting in bed with supplemental oxygen but gets winded easily with activity. He denies any coughing, runny nose, body aches, fever, chest pain. He feels fatigued and generally weak. He does have a home health service coming out but is not receiving any PT/OT. He says following his previous admission a month ago, he did improve and was feeling back to normal until last night. He sleeps flat in bed and several times a week wakes up in the night feeling short of breath and "panics." Last night he says he couldn't calm down and had son bring him to the ED. He follows with Dr. Jacobs for cardiology in [place]. He was supposed to have an appointment today actually. He is not sure, but believes his last echo was within the past year. 09/11: on evaluation this morning the patient is alert, oriented and has no complaint. He is sitting in his bedside shaor eating lunch and says that his breathing has improved since yesterday. He is not requiring any oxygen at this time and his lungs are clear to auscultation. Overnight oxygen saturation testing is to be done once the patient is discharged home to determine the need for retirement continuous oxygen. He is to be discharged this afternoon with three more days of antibiotics and 2 more days of oral steroids. Condition at Discharge: (2) Stable Discharge Medications - Discharge Medications Prescriptions: Doxycycline Hyclate [Vibramycin] 100 mg PO BID 3 Days #7 capsule Prednisone 50 mg PO DAILY 2 Days #2 tablet Home Medications: Ambulatory Orders Amiodarone HCl [Pacerone] 200 mg PO DAILY 08/14/17 [Last Taken Unknown] Aspirin 81 mg PO DAILY 08/14/17 [Last Taken Unknown] Clonidine HCl 0.2 mg PO BID 08/14/17 [Last Taken Unknown] Furosemide 40 mg PO DAILY 08/14/17 [Last Taken Unknown] Glyburide 1.25 mg PO DAILY 08/14/17 [Last Taken Unknown] Metformin HCl 1,000 mg PO BID 08/14/17 [Last Taken Unknown] Metoprolol Succinate [Toprol Xl] 50 mg PO QPM 08/14/17 [Last Taken Unknown] Metoprolol Succinate [Toprol Xl] 100 mg PO QAM 08/14/17 [Last Taken Unknown] Potassium Chloride 10 meq PO DAILY 08/14/17 [Last Taken Unknown] Rivaroxaban [Xarelto] 20 mg PO DAILY 08/14/17 [Last Taken Unknown] Sacubitril/Valsartan [Entresto 97 mg-103 mg Tablet] 1 tab PO BID 08/14/17 [Last Taken Unknown] Sulindac 200 mg PO BID 08/14/17 [Last Taken Unknown] Albuterol Sulfate 0.083% [Neb] 2.5 mg INH Q6H PRN 30 Days #120 nebulization solution 08/23/17 [Last Taken Unknown] Clonidine HCl [Catapres] 0.2 mg PO BID tablet 08/23/17 [Last Taken Unknown] Furosemide [Lasix] 40 mg PO DAILY tablet 08/23/17 [Last Taken Unknown] Metformin HCl [Glucophage Ir] 1,000 mg PO BID tablet 08/23/17 [Last Taken Unknown] Umeclidinium Brm/Vilanterol Tr [Anoro Ellipta 62.5-25 Mcg INH] 1 puff IH RESP.DAILY #1 inhaler 08/23/17 [Last Taken Unknown] Doxycycline Hyclate [Vibramycin] 100 mg PO BID 3 Days #7 capsule 09/11/17 [Last Taken Unknown] Prednisone 50 mg PO DAILY 2 Days #2 tablet 09/11/17 [Last Taken Unknown] Discharge Plan - Discharge Instructions Activity at Discharge: Resume Usual Activities As Tolerated Instructions: Heart Failure (DC), COPD (Chronic Obstructive Pulmonary Disease) (DC), Bronchospasm (DC) Additional Instructions: - Prednisone 50mg daily x 2 days - Doxycycline 100mg twice a day for another 3 days. - CPAP every night and resume home inhalers as prescribed. - Follow up with Dr. San September 19 at 10AM as scheduled Call Dr. Jacobs today to schedule an appointment. You can ask Dr. Jacobs about a sleep study with overnight titration to get oxygen with your cpap. [email or web address] will deliver your hospital bed today after 4:00PM. You can call them at [phone] with any questions. [facility] will see you at home for physical therapy, occupational therapy and visiting nurse. Quality Measures - Quality Measures Quality Measures: Advance Directives, Documentation of Current Medications in Medical Record, Elder Maltreatment Screen and Follow-Up Plan, Heart Failure, Screening for High Blood Pressure and F/U Documented - Current Medications Quality Measure: Measure #130: Documentation of Current Medications Documentation of Current Medications: <Current Medications Documented/Reviewed> [G8419] - Blood Pressure Screening Quality Measure: Screening for High Blood Pressure and Follow-Up Documented Does Patient Have Any of the Following: Active Dx of HTN Blood Pressure Classification: Pre-Hypertensive BP Reading Systolic Measurement: 122 Diastolic Measurement: 63 Screening for High Blood Pressure: Patient Exclusion, Hx of HTN [G9744] - Heart Failure (TERELL/ARB Therapy) Quality Measure: Heart Failure Left Ventricular Systolic Function: LV Ejection Fraction less than 40% [3021F] TERELL Inhibitor or ARB Therapy for LVSD: <TERELL Inhibitor or ARB therapy prescribed or currently taken> [4010F] - Heart Failure (Beta-anca Therapy) Quality Measure: Heart Failure Left Ventricular Systolic Function: LV Ejection Fraction less than 40% [3021F], Unknown Beta-Anca Therapy for LVEF < 40%: <Beta-Anca Therapy Prescribed> [G8450] - Advance Directives Quality Measure: Measure #47: Care Plan Advance Directives Established: No Advance Directives Information Provided To Patient: Already Provided Advance Directives on File: No Living Will: Yes Power of Well Reactivator Operator: (unsure) Advance Care Planning: <Care Plan/Decision Maker Not Decided; Discussed & Documented> [3764F] - Elder Abuse Suspicion Index Screening: Elder Abuse Suspicion Index Screening Rely on people for bathing, dressing, shopping, banking, etc: No Prevented from getting food, clothes, medication, etc: No Made to feel shamed or threatened by someone: No Forced to sign papers or use money against will: No Feel afraid, touched in ways not wanted or hurt physically: No Poor eye contact, withdrawn, malnourished, cuts or bruises: No Screening Result: Negative result EASI Reference Information: Ricarda DAVEY, Keesha C, Alondra Lyman, Luisana Bishop.Development and validation of a tool to assist physicians identification of elder abuse: The Elder Abuse Suspicion Index (EASI ). Journal of Elder Abuse and Neglect, 2008; 20 (3): 276-300. - Elder Maltreatment Screen Quality Measures: Elder Maltreatment Screen and Follow-Up Plan Elder Maltreatment Screen: <Negative, No Follow-Up Plan Required> [E9646]
[2017-09-11] MEDS ORDERED: MAGNESIUM HYDROXIDE 30 ML UDC PO ONE (13:00)
== END 2017-09-11 15:50 | disposition home health service (06) ==
LOC: ER 03:28 → MEDSURG 05:10
PROVIDERS: ADMIT Internal Medicine; ATTEND Internal Medicine
DX: J44.1 Chronic obstructive pulmonary disease with (acute) exacerbation (principal); J98.01 Acute bronchospasm; I50.9 Heart failure, unspecified; I10 Essential (primary) hypertension; E11.9 Type 2 diabetes mellitus without complications; Z79.84 Long term (current) use of oral hypoglycemic drugs; G47.33 Obstructive sleep apnea (adult) (pediatric); I25.2 Old myocardial infarction; Z95.0 Presence of cardiac pacemaker; Z95.1 Presence of aortocoronary bypass graft; Z87.891 Personal history of nicotine dependence; Z85.46 Personal history of malignant neoplasm of prostate
CPT/HCPCS: 80053; 87400; 85027; 83880; 71046; 94640 ×5; 94620; 94761; 94760; 93005; 93010; G0378 ×2; 96374; 99217; 99220; 99285; J2930

== ENCOUNTER 2017-11-12 09:19 | Emergency (ER) | payer MEDICARE ==
--- NOTE | 2017-11-12 09:57 | Emergency Department Record ---
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, FROM and two point sensation good Onset/Timin -: Minutes(s) Place: Home Context: Accidental Associated Symptoms: None Treatments Prior to Arrival: Bandage - [place] Coma Scale Eye Response: (4) Open spontaneously Motor Response: (6) Obeys commands Verbal Response: (5) Oriented [place] Total: 15 - Related Data Hx Tetanus Toxoid Vaccination: Yes Year of Tetanus Vaccination: 2007 Previous Rx's Medication Instructions Recorded Albuterol Sulfate 0.083% [Neb] 2.5 mg INH Q6H PRN 30 Days #120 08/23/17 nebulization solution Clonidine HCl [Catapres] 0.2 mg PO BID tablet 08/23/17 Furosemide [Lasix] 40 mg PO DAILY tablet 08/23/17 Metformin HCl [Glucophage Ir] 1,000 mg PO BID tablet 08/23/17 Umeclidinium Brm/Vilanterol Tr 1 puff IH RESP.DAILY #1 inhaler 08/23/17 [Anoro Ellipta 62.5-25 Mcg INH] Doxycycline Hyclate [Vibramycin] 100 mg PO BID 3 Days #7 capsule 09/11/17 Prednisone 50 mg PO DAILY 2 Days #2 tablet 09/11/17 Allergies Allergy/AdvReac Type Severity Reaction Status Date / Time No Known Drug Allergies Allergy Verified 11/12/17 09:33 Travel Screening - Travel/Exposure Within Last 30 Days Have you traveled within the last 30 days?: No Review of Systems Reviewed: No additional complaints except as noted below Constitutional: Reports: As per HPI. Denies: Chills, Fever, Malaise, Night sweats, Weakness, Weight change Eyes: Reports: As per HPI. Denies: Eye discharge, Eye pain, Photophobia, Vision change ENT: Reports: As per HPI. Denies: Congestion, Dental pain, Ear pain, Epistaxis , Hearing loss, Throat pain Respiratory: Reports: As per HPI. Denies: Cough, Dyspnea, Hemoptysis, Stridor, Wheezes Cardiovascular: Reports: As per HPI. Denies: Arrhythmia, Chest pain, Dyspnea on exertion, Edema, Murmurs, Orthopnea, Palpitations, Paroxysmal nocturnal dyspnea, Rheumatic Fever, Syncope Endocrine: Reports: As per HPI. Denies: Fatigue, Heat or cold intolerance, Polydipsia, Polyuria Gastrointestinal: Reports: As per HPI. Denies: Abdominal pain, Constipation, Diarrhea, Hematemesis, Hematochezia, Melena, Nausea, Vomiting Genitourinary: Reports: As per HPI. Denies: Dysuria, Frequency, Hematuria, Incontinence, Retention, Testicular pain, Testicular mass, Urgency Musculoskeletal: Reports: As per HPI. Denies: Arthralgia, Back pain, Gout, Joint swelling, Myalgia, Neck pain Skin: Reports: As per HPI. Denies: Bruising, Change in color, Change in hair/ nails, Lesions, Pruritus, Rash Neurological: Reports: As per HPI. Denies: Abnormal gait, Confusion, Headache, Numbness, Paresthesias, Seizure, Tingling, Tremors, Vertigo, Weakness Psychiatric: Reports: As per HPI. Denies: Anxiety, Auditory hallucinations, Depression, Homicidal thoughts, Suicidal thoughts, Visual hallucinations Hematological/Lymphatic: Reports: As per HPI. Denies: Anemia, Blood Clots, Easy bleeding, Easy bruising, Swollen glands Past Medical History - SOCIAL HISTORY Smoking Status: Former smoker Alcohol Use: None Drug Use: None - RESPIRATORY Hx Respiratory Disorders: Yes Hx Asthma: No Hx Bronchitis: No Hx COPD: No Hx Dyspnea: Yes Hx Pneumonia: No Hx Pulmonary Embolism: No Hx Tuberculosis: No Hx of CPAP: Yes - CARDIOVASCULAR Hx Cardio Disorders: Yes Hx Abnormal EKG: Yes Hx Cardiac Cath: No Hx Chest Pain: No Hx CHF: Yes Hx Deep Vein Thrombosis: No Hx Edema: Yes Hx Heart Attack: Yes Hx Hypertension: Yes Hx Hypotension: No Hx Irregular Heartbeat: Yes Hx Palpitations: No Hx Vascular Disease: No - NEURO Hx Neuro Disorders: No Hx Brain Tumor: No Hx CVA: No Hx Dementia: No Hx Dizziness: No Hx Headaches: No Hx Neuropathy: No Hx Parkinson's Disease: No Hx Seizures: No Hx Speech Problem: No Hx TIA: No - GI Hx GI Disorders: No Hx Abdominal Pain: No Hx Celiac Disease: No Hx Crohn's Disease: No Hx Diverticulitis: No Hx GI Bleed: No Hx Reflux: No Hx Hepatitis/Jaundice: No Hx Hiatal Hernia: No Hx Irritable Bowel: No Hx Liver Disease: No Hx Nausea/Vomiting: No Hx Obstructive Bowel: No Hx Pancreatitis: No Hx Rectal Bleeding: No Hx Ulcer: No Hx Wt Loss/Wt Gain: No Hx of Polyps: No - Hx Genitourinary Disorders: Yes Hx Bladder Problem: No Hx Dialysis: No Hx Kidney Stones: Yes Hx Prostate Problems: Yes Hx Renal Disease: No Hx UTI: No - ENDOCRINE Hx Endocrine Disorders: Yes Hx Diabetes: Yes (DM2) Hx Thyroid Disease: No - MUSCULOSKELETAL Hx Musculoskeletal Disorders: Yes Hx Arthritis: Yes Hx Back Injury: No Hx Fibromyalgia: No Hx Gout: No Hx Musculoskeletal Disease: No Hx Osteoporosis: No - PSYCH Hx Psych Problems: No Hx Anxiety: No Hx Behavior Problems: No Hx Depression: No Hx Emotional Abuse: No Hx Sexual Abuse: No Hx Suicide Attempt: No Comment:: recent - HEMATOLOGY/ONCOLOGY Hx Hematology/Oncology Disorders: No Hx Anemia: No Hx Blood Disorders: No Hx Bruising: No Hx Cancer: Yes Hx Chemotherapy: No Hx Radiation Therapy: No Hx Clotting Problems: No Hx Sickle Cell Disease: No Hx Unexplained Bleeding: No Hx Blood Transfusions: No Hx Blood Transfusion Reaction: No Family Medical History Any Significant Family History?: Yes Hx Alcohol Use: Father Hx Diabetes: Brother/Sister Hx HTN: Father, Mother, Brother/Sister Physical Exam - General General Appearance: Alert, Oriented x3, Cooperative, No acute distress - Head Head exam: Normal inspection - Eye Eye exam: Normal appearance, PERRL Pupils: Normal accommodation - ENT ENT exam: Normal exam, Mucous membranes moist, Normal external ear exam, Normal orophraynx, TM's normal bilaterally Ear exam: Normal external inspection. negative: External canal tenderness Nasal Exam: Normal inspection. negative: Discharge, Sinus tenderness Mouth exam: Normal external inspection, Tongue normal Teeth exam: Normal inspection. negative: Dental caries Throat exam: Normal inspection. negative: Tonsillar erythema, Tonsillar exudate - Neck Neck exam: Normal inspection, Full ROM. negative: Tenderness - Respiratory Respiratory exam: Normal lung sounds bilaterally. negative: Respiratory distress - Cardiovascular Cardiovascular Exam: Regular rate, Normal rhythm, Normal heart sounds - GI/Abdominal GI/Abdominal exam: Soft, Normal bowel sounds. negative: Tenderness - Rectal Rectal exam: Deferred - exam: Deferred - Extremities Extremities exam: Normal inspection, Full ROM, Normal capillary refill. negative: Tenderness - Back Back exam: Reports: Normal inspection, Full ROM. Denies: Muscle spasm, Rash noted, Tenderness - Neurological Neurological exam: Alert, Normal gait, Oriented X3, Reflexes normal - Psychiatric Psychiatric exam: Normal affect, Normal mood - Skin Skin exam: Dry, Intact, Normal color, Warm, Other (laceration 3 cm of right middle finger) Course Vital Signs 11/12/17 09:28 Temperature 97.7 F Pulse Rate 72 Respiratory 22 Rate Blood Pressure 107/72 Pulse Ox 97 - Reevaluation(s) Reevaluation #1: laceration repair no FB seen wahed and irrigated finger 1 % lidocaine digital block repaired with 5.0 ethilon times three sutures guaze dressing sutures out in 10 days 11/12/17 09:59 Disposition Clinical Impression: Laceration of finger Qualifiers: Encounter type: initial encounter Finger: middle finger Damage to nail status: without damage Foreign body presence: without foreign body Laterality: right Qualified Code(s): S61.212A - Laceration without foreign body of right middle finger without damage to nail, initial encounter Disposition: Home, Self-Care Condition: (1) Good Instructions: Laceration (ED) Additional Instructions: remove sutures in 10 days wound care Forms: Patient Portal Access Time of Disposition: 10:01 Quality - Quality Measures Quality Measures: N/A - Blood Pressure Screening Does Patient Have Any of the Following: No Blood Pressure Classification: Normal BP Reading Systolic Measurement: 107 Diastolic Measurement: 72 Screening for High Blood Pressure: < Normal BP, F/U Not Required > [G8783]
[2017-11-12] MEDS ORDERED: Diph,Pert(Acell),Tet Vac 0.5 ML SYR IM ONE (10:02)
== END 2017-11-12 10:52 | disposition home or self-care (01) ==
LOC: ER 09:19
DX: S61.212A Laceration without foreign body of right middle finger without damage to nail, initial encounter (principal); W25.XXXA Contact with sharp glass, initial encounter; Y93.G1 Activity, food preparation and clean up; Y92.009 Unspecified place in unspecified non-institutional (private) residence as the place of occurrence of the external cause; I10 Essential (primary) hypertension; I25.2 Old myocardial infarction; Z87.891 Personal history of nicotine dependence
CPT/HCPCS: 12002; 90715; 96372; 99283

== ENCOUNTER 2017-11-21 16:19 | Emergency (ER) | payer MEDICARE ==
--- NOTE | 2017-11-21 16:35 | Emergency Department Record ---
History of Present Illness - General Stated Complaint: SUTURE REMOVAL Time Seen by Provider: 11/21/17 16:30 Source: Patient Mode of Arrival: Ambulatory Limitations: No limitations - History of Present Illness Initial comments: The patient is here for suture removal. He denies any problems. - Related Data Previous Rx's Medication Instructions Recorded Albuterol Sulfate 0.083% [Neb] 2.5 mg INH Q6H PRN 30 Days #120 08/23/17 nebulization solution Clonidine HCl [Catapres] 0.2 mg PO BID tablet 08/23/17 Furosemide [Lasix] 40 mg PO DAILY tablet 08/23/17 Metformin HCl [Glucophage Ir] 1,000 mg PO BID tablet 08/23/17 Umeclidinium Brm/Vilanterol Tr 1 puff IH RESP.DAILY #1 inhaler 08/23/17 [Anoro Ellipta 62.5-25 Mcg INH] Doxycycline Hyclate [Vibramycin] 100 mg PO BID 3 Days #7 capsule 09/11/17 Prednisone 50 mg PO DAILY 2 Days #2 tablet 09/11/17 Allergies Allergy/AdvReac Type Severity Reaction Status Date / Time No Known Drug Allergies Allergy Verified 11/21/17 16:43 Past Medical History - SOCIAL HISTORY Smoking Status: Former smoker Drug Use: None - RESPIRATORY Hx Respiratory Disorders: Yes Hx Asthma: No Hx Bronchitis: No Hx COPD: No Hx Dyspnea: Yes Hx Pneumonia: No Hx Pulmonary Embolism: No Hx Tuberculosis: No Hx of CPAP: Yes - CARDIOVASCULAR Hx Cardio Disorders: Yes Hx Abnormal EKG: Yes Hx Cardiac Cath: No Hx Chest Pain: No Hx CHF: Yes Hx Deep Vein Thrombosis: No Hx Edema: Yes Hx Heart Attack: Yes Hx Hypertension: Yes Hx Hypotension: No Hx Irregular Heartbeat: Yes Hx Palpitations: No Hx Vascular Disease: No - NEURO Hx Neuro Disorders: No Hx Brain Tumor: No Hx CVA: No Hx Dementia: No Hx Dizziness: No Hx Headaches: No Hx Neuropathy: No Hx Parkinson's Disease: No Hx Seizures: No Hx Speech Problem: No Hx TIA: No - GI Hx GI Disorders: No Hx Abdominal Pain: No Hx Celiac Disease: No Hx Crohn's Disease: No Hx Diverticulitis: No Hx GI Bleed: No Hx Reflux: No Hx Hepatitis/Jaundice: No Hx Hiatal Hernia: No Hx Irritable Bowel: No Hx Liver Disease: No Hx Nausea/Vomiting: No Hx Obstructive Bowel: No Hx Pancreatitis: No Hx Rectal Bleeding: No Hx Ulcer: No Hx Wt Loss/Wt Gain: No Hx of Polyps: No - Hx Genitourinary Disorders: Yes Hx Bladder Problem: No Hx Dialysis: No Hx Kidney Stones: Yes Hx Prostate Problems: Yes Hx Renal Disease: No Hx UTI: No - ENDOCRINE Hx Endocrine Disorders: Yes Hx Diabetes: Yes (DM2) Hx Thyroid Disease: No - MUSCULOSKELETAL Hx Musculoskeletal Disorders: Yes Hx Arthritis: Yes Hx Back Injury: No Hx Fibromyalgia: No Hx Gout: No Hx Musculoskeletal Disease: No Hx Osteoporosis: No - PSYCH Hx Psych Problems: No Hx Anxiety: No Hx Behavior Problems: No Hx Depression: No Hx Emotional Abuse: No Hx Sexual Abuse: No Hx Suicide Attempt: No Comment:: recent - HEMATOLOGY/ONCOLOGY Hx Hematology/Oncology Disorders: No Hx Anemia: No Hx Blood Disorders: No Hx Bruising: No Hx Cancer: Yes Hx Chemotherapy: No Hx Radiation Therapy: No Hx Clotting Problems: No Hx Sickle Cell Disease: No Hx Unexplained Bleeding: No Hx Blood Transfusions: No Hx Blood Transfusion Reaction: No Family Medical History Hx Alcohol Use: Father Hx Diabetes: Brother/Sister Hx HTN: Father, Mother, Brother/Sister Disposition Disposition: Discharge Clinical Impression: Encounter for removal of sutures Disposition: Home, Self-Care Condition: (2) Stable Instructions: Stitches Removal (ED) Additional Instructions: Please return to the ER for any problems. Forms: Patient Portal Access Time of Disposition: 16:34 Quality - Quality Measures Quality Measures: N/A - Blood Pressure Screening View Details: Yes Does Patient Have Any of the Following: Active Dx of HTN Blood Pressure Classification: Hypertensive Reading Systolic Measurement: 145 Diastolic Measurement: 74 Screening for High Blood Pressure: Patient Exclusion, Hx of HTN [G9744]
== END 2017-11-21 16:50 | disposition home or self-care (01) ==
LOC: ER 16:19
DX: Z48.02 Encounter for removal of sutures (principal)

== ENCOUNTER 2018-05-12 00:42 | Emergency (ER) | payer MEDICARE ==
[2018-05-12] MEDS ORDERED: ONDANSETRON HCL IV 4 MG/2 ML VIAL IVP ONE (00:53)
[2018-05-12] MEDS ORDERED: HYOSCYAMINE SULFATE ODT 0.125 MG TAB.SUBL SL ONE (00:53)
--- NOTE | 2018-05-12 00:58 | Emergency Department Record ---
History of Present Illness - General Chief Complaint: Abdominal Pain Stated Complaint: ABD PAIN Source: Patient Mode of Arrival: Ambulatory Limitations: No limitations - History of Present Illness Initial Comments: 77 yo male presents to ED for evaluation of lower abdominal pain symptoms that began this evening after eating "spicy sausage". Patient denies fevers, chills , or vomiting symptoms. Patient denies loose stools or blood in his stools. Patient does report recent renal biopsy performed yesterday at [facility] for renal "lesions" identified on previous imaging. Patient's PCP is Dr. San. Complaint: Abdominal pain Onset/Timin -: Days(s) Location: LLQ, RLQ Radiation: None Severity: Moderate Quality: Cramping Consistency: Constant Improves With: Nothing Worsens With: Nothing Context: Recent surgery/procedure Associated Symptoms: Denies other symptoms - Related Data Home Medications Medication Instructions Recorded Confirmed Last Taken Amiodarone HCl [Pacerone] 200 mg PO BID 05/12/18 05/12/18 Unknown Atorvastatin Calcium [Lipitor] 20 mg PO DAILY 05/12/18 05/12/18 Unknown Digoxin 125 mcg PO DAILY 05/12/18 05/12/18 Unknown Furosemide 40 mg PO BID 05/12/18 05/12/18 Unknown Isosorbide Dinitrate 30 mg PO DAILY 05/12/18 05/12/18 Unknown Previous Rx's Medication Instructions Recorded Umeclidinium Brm/Vilanterol Tr 1 puff IH RESP.DAILY #1 inhaler 08/23/17 [Anoro Ellipta 62.5-25 Mcg INH] Allergies Allergy/AdvReac Type Severity Reaction Status Date / Time No Known Drug Allergies Allergy Verified 11/21/17 16:43 Review of Systems Constitutional: Denies: Chills, Fever, Malaise, Night sweats Eyes: Denies: Eye discharge, Eye pain ENT: Denies: Congestion, Ear pain, Epistaxis Respiratory: Denies: Cough, Dyspnea Cardiovascular: Denies: Chest pain, Dyspnea on exertion Endocrine: Denies: Fatigue, Heat or cold intolerance Gastrointestinal: Reports: Abdominal pain. Denies: Constipation, Hematochezia, Melena, Vomiting Genitourinary: Denies: Incontinence, Retention Musculoskeletal: Denies: Arthralgia, Back pain Skin: Denies: Bruising, Change in color Neurological: Denies: Abnormal gait, Confusion, Headache, Seizure Psychiatric: Denies: Anxiety Hematological/Lymphatic: Denies: Anemia, Blood Clots Past Medical History - SOCIAL HISTORY Smoking Status: Former smoker Drug Use: None - RESPIRATORY Hx Respiratory Disorders: Yes Hx Asthma: No Hx Bronchitis: No Hx COPD: No Hx Dyspnea: Yes Hx Pneumonia: No Hx Pulmonary Embolism: No Hx Tuberculosis: No Hx of CPAP: Yes - CARDIOVASCULAR Hx Cardio Disorders: Yes Hx Abnormal EKG: Yes Hx Cardiac Cath: No Hx Chest Pain: No Hx CHF: Yes Hx Deep Vein Thrombosis: No Hx Edema: Yes Hx Heart Attack: Yes Hx Hypertension: Yes Hx Hypotension: No Hx Irregular Heartbeat: Yes Hx Palpitations: No Hx Vascular Disease: No - NEURO Hx Neuro Disorders: No Hx Brain Tumor: No Hx CVA: No Hx Dementia: No Hx Dizziness: No Hx Headaches: No Hx Neuropathy: No Hx Parkinson's Disease: No Hx Seizures: No Hx Speech Problem: No Hx TIA: No - GI Hx GI Disorders: No Hx Abdominal Pain: No Hx Celiac Disease: No Hx Crohn's Disease: No Hx Diverticulitis: No Hx GI Bleed: No Hx Reflux: No Hx Hepatitis/Jaundice: No Hx Hiatal Hernia: No Hx Irritable Bowel: No Hx Liver Disease: No Hx Nausea/Vomiting: No Hx Obstructive Bowel: No Hx Pancreatitis: No Hx Rectal Bleeding: No Hx Ulcer: No Hx Wt Loss/Wt Gain: No Hx of Polyps: No - Hx Genitourinary Disorders: Yes Hx Bladder Problem: No Hx Dialysis: No Hx Kidney Stones: Yes Hx Prostate Problems: Yes Hx Renal Disease: No Hx UTI: No - ENDOCRINE Hx Endocrine Disorders: Yes Hx Diabetes: Yes (DM2) Hx Thyroid Disease: No - MUSCULOSKELETAL Hx Musculoskeletal Disorders: Yes Hx Arthritis: Yes Hx Back Injury: No Hx Fibromyalgia: No Hx Gout: No Hx Musculoskeletal Disease: No Hx Osteoporosis: No - PSYCH Hx Psych Problems: No Hx Anxiety: No Hx Behavior Problems: No Hx Depression: No Hx Emotional Abuse: No Hx Sexual Abuse: No Hx Suicide Attempt: No Comment:: recent - HEMATOLOGY/ONCOLOGY Hx Hematology/Oncology Disorders: No Hx Anemia: No Hx Blood Disorders: No Hx Bruising: No Hx Cancer: Yes Hx Chemotherapy: No Hx Radiation Therapy: No Hx Clotting Problems: No Hx Sickle Cell Disease: No Hx Unexplained Bleeding: No Hx Blood Transfusions: No Hx Blood Transfusion Reaction: No Family Medical History Hx Alcohol Use: Father Hx Diabetes: Brother/Sister Hx HTN: Father, Mother, Brother/Sister Physical Exam - General General Appearance: Alert, Oriented x3, Cooperative, Mild distress Limitations: No limitations - Head Head exam: Atraumatic, Normocephalic, Normal inspection Head exam detail: negative: Abrasion, Contusion, Stauffer's sign, General tenderness, Hematoma, Laceration - Eye Eye exam: Normal appearance. negative: Conjunctival injection, Periorbital swelling, Periorbital tenderness, Scleral icterus - ENT Ear exam: negative: Auricular hematoma, Auricular trauma Nasal Exam: negative: Active bleeding, Discharge, Dried blood, Foreign body Mouth exam: negative: Drooling, Laceration, Muffled voice, Tongue elevation - Neck Neck exam: Normal inspection. negative: Meningismus, Tenderness - Respiratory Respiratory exam: Normal lung sounds bilaterally. negative: Rales, Respiratory distress, Rhonchi, Stridor - Cardiovascular Cardiovascular Exam: Regular rate, Normal rhythm, Normal heart sounds - GI/Abdominal GI/Abdominal exam: Soft, Other (No pain with palption of the lower abdomen on examination). negative: Rebound, Rigid, Tenderness - Rectal Rectal exam: Deferred - exam: Deferred - Extremities Extremities exam: Normal inspection. negative: Tenderness - Back Back exam: Denies: CVA tenderness (R), CVA tenderness (L) - Neurological Neurological exam: Alert, Normal gait, Oriented X3 - Psychiatric Psychiatric exam: Normal affect, Normal mood - Skin Skin exam: Normal color. negative: Abrasion Type of lesion: negative: abrasion Course - Reevaluation(s) Reevaluation #1: 05/12/18 01:26 Laboratory studies were reviewed: WBC 10.1, 85% Neutrophils Hgb 12.8 GFR 48 UA pending. Patient is going for CT imaging at this time, reports very little improvement in his pain symptoms following Levsin. Will administer Morphine IV upon the patient's return from CT imaging. Reevaluation #2: 05/12/18 01:45 Patient is back from CT imaging, Morphine ordered to be given for continued abdominal discomfort. Patient reports that he is unable to urinate at this time. Reevaluation #3: 05/12/18 02:13 CT Abdomen and Pelvis: Non-obstructive nephrolithiasis Numerous bilateral cysts, largest 7.5 cm right kidney. Central density suggesting hemorrhage. Atherosclerotic vascular disease Patient was updated on all results, will initiate transfer to [facility] for further evaluation. Reevaluation #4: 05/12/18 02:22 Case was discussed with Dr. Ramachandran, will accept transfer for further evaluation. Medical Decision Making - Lab Data Result diagrams: 05/12/18 01:00 05/12/18 01:00 Disposition Disposition: Transfer Clinical Impression: Renal hemorrhage, right Abdominal pain Qualifiers: Abdominal location: lower abdomen, unspecified Qualified Code(s): R10.30 - Lower abdominal pain, unspecified CRF (chronic renal failure) Qualifiers: Chronic kidney disease stage: stage 3 (moderate) Qualified Code(s): N18.3 - Chronic kidney disease, stage 3 (moderate) Disposition: Acute Care Hospital Transfer Transfer To: [facility] Reason For Transfer: Renal Hemorrhage post-op Accepting Physician: Madie Time Discussed w/Accepting Physician: 02:24 Condition: (2) Stable Forms: Patient Portal Access Time of Disposition: 02:24 Quality - Quality Measures Quality Measures: N/A - Blood Pressure Screening Does Patient Have Any of the Following: Active Dx of HTN Blood Pressure Classification: Hypertensive Reading Systolic Measurement: 183 Diastolic Measurement: 74 Screening for High Blood Pressure: Patient Exclusion, Hx of HTN [G9744]
[2018-05-12] MEDS ORDERED: 0.9 % SODIUM CHLORIDE 1000ML 1,000 ML IV SCH (01:00)
[2018-05-12 01:06] LABS: BASO % 0.3 % (0-6); HEMATOCRIT 40.1 % (42.0-52.0); HEMOGLOBIN 12.8 gm/dl (14.0-18.0); LYMPH % 5.6 % (16-45); MEAN CELL VOLUME 97.6 fl (81-97); MEAN CORPUSCULAR HEMOGLOBIN 31.1 pg (27-33); MEAN CORPUSCULAR HGB CONC 31.9 g/dl (32-36); MEAN PLATELET VOLUME 9.5 fl (7.4-10.4); MONO % 5.7 % (0-9); PLATELET COUNT 199 K/uL (130-400); RED BLOOD COUNT 4.11 M/uL (4.40-5.70); RED CELL DISTRIBUTION WIDTH 13.8 % (11.5-14.5); WHITE BLOOD COUNT W/O DIFF 10.1 K/uL (4.2-12.2)
[2018-05-12 01:14] LABS: BILIRUBIN,TOTAL 1.2 mg/dL (0.2-1.0); CREATININE 1.5 mg/dL (0.7-1.2)
[2018-05-12 01:15] LABS: TOTAL PROTEIN 7.4 g/dL (6.6-8.7)
[2018-05-12 01:19] LABS: ALB/GLOB RATIO 1.3 (1.1-1.8); ALBUMIN 4.2 g/dL (4.0-5.0)
[2018-05-12 01:20] LABS: DIGOXIN 0.5 ng/mL (0.8-2.0)
[2018-05-12] MEDS ORDERED: MORPHINE SULFATE 10 MG/ML VIAL IVP ONE (01:44)
[2018-05-12 04:37] LABS: URINE APPEARANCE CLEAR; URINE BILIRUBIN NEGATIVE (NEGATIVE); URINE BLOOD NEGATIVE (NEGATIVE); URINE COLOR YELLOW; URINE GLUCOSE (UA) NEGATIVE (NEGATIVE); URINE KETONE NEGATIVE (NEGATIVE); URINE LEUKOCYTE ESTERASE TRACE (NEGATIVE); URINE NITRITE NEGATIVE (NEGATIVE); URINE PROTEIN NEGATIVE (NEGATIVE)
[2018-05-12 04:45] LABS: URINE BACTERIA NONE SEEN; URINE EPITHELIAL CELLS 0 - 2 (FEW); URINE RBC 0 - 2 (NONE SEEN); URINE WBC 0 - 2 (0-2/hpf)
--- NOTE | 2018-05-13 12:44 | CT SCAN REPORT ---
EXAM: CT OF THE ABDOMEN AND PELVIS WITHOUT CONTRAST HISTORY: THIS IS A 77-YEAR-OLD MALE WITH ABDOMINAL PAIN AND FLANK PAIN. PREVIOUS PROSTATE CANCER. TECHNIQUE: Routine noncontrast CT images of the abdomen and pelvis were obtained. Comparison: None. FINDINGS: The visualized lung bases demonstrate mild interstitial scarring and peribronchial thickening. There are pleural calcifications. Pacemaker/ defibrillator leads are seen projecting into the heart. There is cholelithiasis. The pancreas and spleen have a normal noncontrast appearance. There is a left adrenal adenoma. Bilateral adrenal thickening also noted. There are multiple small bilateral intrarenal calculi. No evident hydronephrosis. No ureteral calculi. There are multiple bilateral hypodense and hyperdense renal masses probably simple cysts and hyperdense cysts though would be difficult to exclude solid masses. Additionally there is a suspicious appearing mass emanating from the anterior aspect of the left kidney measuring approximately 3.7 x 3.7 cm with peripheral calcifications and a peripheral hyperdense rim. Solid mass not excluded. Also there is a 9.8 x 6.5 x 6.4 cm mixed attenuation mass within the mid to lower right kidney with central hyperdensity and a few bubbles of gas both within the mass and in the perinephric region. Suspect this relates to a hemorrhagic cyst, though correlate with any recent operative intervention or signs of infection. Recommend patient have further assessment with renal protocol CT or MR. The bowel is normal in caliber. The colon is somewhat redundant and tortuous. The appendix has a normal noncontrast appearance. The bladder is unremarkable. The prostate is surgically absent. Moderate atherosclerotic calcifications throughout. The aorta demonstrates ectasia though no aneurysmal dilatation. No abdominal or pelvic lymphadenopathy. No free air or free fluid. Small fat containing periumbilical hernia. Advanced lumbar spondylosis. Moderate bilateral hip degenerative change. Previous laminectomies at L2 through L5. IMPRESSION: 1. ABNORMAL APPEARANCE OF THE RIGHT KIDNEY WITH A PERIPHERALLY CALCIFIED MASS MEASURING 3.7 CM SIZE RANGE WELL A MIXED ATTENUATION MASS MEASURING UP TO 9.8 CM SIZE RANGE. THE FORMER MASS COULD RELATE TO NEOPLASM. THE LATTER MAY RELATE TO A HEMORRHAGIC CYST THOUGH CORRELATE FOR RECENT INTERVENTION OR SIGNS OF INFECTION. RECOMMEND FURTHER ASSESSMENT WITH RENAL PROTOCOL MRI OR CT. 2. ELSEWHERE THERE ARE HYPO AND HYPERDENSE RENAL MASSES WHICH MAY RELATE TO SIMPLE CYSTS AND HYPERDENSE CYSTS. THESE CAN ALSO BE FURTHER ASSESSED ON ADDITIONAL IMAGING. 3. CHOLELITHIASIS. 4. OTHER CHRONIC FINDINGS ABOVE. JOB NUMBER: [id number] MTDD
== END 2018-05-12 03:06 | disposition short-term general hospital (02) ==
LOC: ER 00:42
DX: N99.820 Postprocedural hemorrhage of a genitourinary system organ or structure following a genitourinary system procedure (principal); I13.0 Hypertensive heart and chronic kidney disease with heart failure and stage 1 through stage 4 chronic kidney disease, or unspecified chronic kidney disease; E11.22 Type 2 diabetes mellitus with diabetic chronic kidney disease; N18.3 Chronic kidney disease, stage 3 (moderate); R10.31 Right lower quadrant pain; I50.9 Heart failure, unspecified; I25.2 Old myocardial infarction; Z87.891 Personal history of nicotine dependence; Z85.46 Personal history of malignant neoplasm of prostate
CPT/HCPCS: 99285 ×2; 96374; 96375; 83690; 80053; 81001; 80162; 85027; 74176; J1980; J2405; J2270; J7030